=== PATIENT | male | born 1945 | race Caucasian/White ===

== ENCOUNTER 2023-11-04 14:17 | Inpatient (IN) | payer MEDICARE, OTHER ==
[~2023-11-04] VITALS: Ht 170.2 cm; Wt 83.4 kg
[2023-11-04 15:41] LABS: Chloride 105 mmol/L (98-107); Potassium 4.4 mmol/L (3.5-5.1); Sodium 141 mmol/L (136-145)
[2023-11-04 15:42] LABS: Anion Gap 6 (5-15); Carbon Dioxide 30 mmol/L (20-31)
[2023-11-04 15:43] LABS: Calcium 9.3 mg/dL (8.7-10.4)
[2023-11-04 15:45] LABS: Basophils # (auto) 0 10 ^3/uL (0-0.2); Basophils % (auto) 0.4 % (0.0-2.0); Eosinophils # (auto) 0.3 10 ^3/uL (0-0.8); Eosinophils % (auto) 2.8 % (0.0-7.0); Hemoglobin 12.4 g/dL (13.5-17.5); Lymphocytes # (auto) 1.1 10 ^3/uL (0.4-5.4); Mean Corpuscular Hgb Conc. 34.3 g/dL (32.0-36.0); Mean Corpuscular Volume 90.4 fL (80.0-100.0); Monocytes # (auto) 0.7 10 ^3/uL (0-1.3); Monocytes % (auto) 7.8 % (0.0-12.0); Neutrophils # (auto) 7.3 10 ^3/uL (1.6-8.6); Platelet Count (auto) 285 10^3/uL (140-450); Red Blood Cells 3.99 10^6/uL (4.5-5.90); Red Cell Distribution Width 13.3 % (11.8-14.3); White Blood Cell 9.5 10^3/uL (4.4-10.8)
[2023-11-04 15:48] LABS: Blood Urea Nitrogen 19 mg/dL (9-23); Glucose 114 mg/dL (74-106)
[2023-11-04 18:46] VITALS: PULSE 78; RESP 18; O2SAT 96
[2023-11-04 19:05] VITALS: PULSE 77; RESP 18; O2SAT 96
[2023-11-04 21:43] LABS: Alkaline Phosphatase 119 U/L (46-116); Aspartate Aminotransferase 17 U/L (13-40); Bilirubin, Total 0.5 mg/dL (0.2-1.0)
[2023-11-04 21:53] LABS: Alanine Aminotransferase < 9 U/L (7-40)
[2023-11-05] VITALS (16 sets, daily range): BP systolic 118–142; BP diastolic 63–80; PULSE 59–83; RESP 14–85; TEMP 97.5–98.5; O2SAT 92–99
[2023-11-05] MEDS ORDERED: traMADol HCL 50 MG TAB PO PRN
[2023-11-05] MEDS ORDERED: MORPHINE SULFATE INJ 2 MG/ml SYRG IV PRN
[2023-11-05] MEDS ORDERED: ACETAMINOPHEN 500 MG TAB PO PRN
[2023-11-05] MEDS ORDERED: DEXTROSE (50%) 50ML SYRG IV PRN (00:45)
[2023-11-05] MEDS: IPRATROPIUM BROM 0.5 MG/2.5ML INH SOL NEB SCH (00:45)
[2023-11-05] MEDS: LEVALBUTEROL HCL 1.25 MG/3 ML NEB NEB SCH (00:45)
[2023-11-05] MEDS: FUROSEMIDE 40 MG/4 ML VIAL IV ONE (01:19)
[2023-11-05] MEDS: ceFAZolin 1GM/50ML 50 ML IV ONE (02:43)
[2023-11-05] MEDS ORDERED: TIOT17SP IN (03:30)
[2023-11-05] MEDS ORDERED: NYSTOIN4 EX (03:30)
[2023-11-05] MEDS ORDERED: MONT-8 PO (03:30)
[2023-11-05] MEDS ORDERED: OME20GT GT (03:30)
[2023-11-05] MEDS ORDERED: ALBU0.084 NEB (03:30)
[2023-11-05] MEDS ORDERED: FURO40TA4 PO (03:30)
[2023-11-05] MEDS ORDERED: MIRT1TAB40 PO (03:30)
[2023-11-05] MEDS ORDERED: ATOR40TA52 PO (03:30)
[2023-11-05] MEDS ORDERED: DABI75CA5 PO (03:30)
[2023-11-05] MEDS ORDERED: DABI150C5 PO (03:30)
[2023-11-05] MEDS ORDERED: FOSI40TA PO (03:30)
[2023-11-05] MEDS ORDERED: IPRA0.03 (03:30)
[2023-11-05] MEDS ORDERED: GUAI400T13 PO (03:30)
[2023-11-05] MEDS ORDERED: FER325T PO (03:30)
[2023-11-05] MEDS ORDERED: PRE1T PO (03:30)
[2023-11-05] MEDS ORDERED: FLUT250M2 INH (03:30)
[2023-11-05] MEDS ORDERED: GALA16CA PO (03:30)
[2023-11-05] MEDS ORDERED: METO-289 PO (03:30)
[2023-11-05] MEDS ORDERED: AZIT500T66 PO (03:30)
[2023-11-05] MEDS ORDERED: LORA-1121 PO (03:30)
[2023-11-05] MEDS ORDERED: LORA-622 PO (03:30)
[2023-11-05] MEDS: InsuLIN REG 1unit/0.01ml Soln (100units/ml) SC SCH (04:00)
[2023-11-05] MEDS: ATORVASTATIN 20 MG TAB PO ONE (04:40)
[2023-11-05] MEDS: ACCU-CHEK COMFORT CURVE STRIP VI SCH (04:46)
[2023-11-05] MEDS: PANTOPRAZOLE 40 MG TAB PO SCH (05:53)
[2023-11-05 06:01] LABS: Basophils # (auto) 0 10 ^3/uL (0-0.2); Basophils % (auto) 0.4 % (0.0-2.0); Eosinophils # (auto) 0.3 10 ^3/uL (0-0.8); Eosinophils % (auto) 3.8 % (0.0-7.0); Hematocrit 34.1 % (41.0-53.0); Hemoglobin 11.6 g/dL (13.5-17.5); Lymphocytes # (auto) 1.2 10 ^3/uL (0.4-5.4); Mean Corpuscular Hemoglobin 31.2 pg (28.0-32.0); Mean Corpuscular Hgb Conc. 34.1 g/dL (32.0-36.0); Mean Corpuscular Volume 91.3 fL (80.0-100.0); Monocytes # (auto) 0.7 10 ^3/uL (0-1.3); Monocytes % (auto) 8.3 % (0.0-12.0); Neutrophils # (auto) 5.7 10 ^3/uL (1.6-8.6); Neutrophils % (auto) 72.5 % (37.0-80.0); Platelet Count (auto) 235 10^3/uL (140-450); Red Blood Cells 3.73 10^6/uL (4.5-5.90); Red Cell Distribution Width 13.3 % (11.8-14.3); White Blood Cell 7.9 10^3/uL (4.4-10.8)
[2023-11-05 06:24] LABS: Anion Gap 8 (5-15); Calcium 9.3 mg/dL (8.7-10.4); Carbon Dioxide 28 mmol/L (20-31); Chloride 106 mmol/L (98-107); Potassium 4.2 mmol/L (3.5-5.1); Sodium 142 mmol/L (136-145)
[2023-11-05] MEDS: INSULIN LANTUS (GLARGINE) 1 /0.01ml (100units/ml) SC SCH (06:26)
[2023-11-05 06:29] LABS: BUN/Creatinine Ratio 14.9 (10.0-20.0); Blood Urea Nitrogen 17 mg/dL (9-23); Glucose 99 mg/dL (74-106)
[2023-11-05 06:37] LABS: Erythrocyte Sedimentation Rate 67 mm/hr (0-20)
[2023-11-05] MEDS ORDERED: DABIGATRAN 75 MG CAP PO SCH ×2 (10:00→11:22)
[2023-11-05] MEDS: METOPROLOL SUCCINATE XL 50 MG TAB PO SCH (10:16)
[2023-11-05] MEDS: DABIGATRAN 75 MG CAP PO ONE (18:00)
[2023-11-05] MEDS: DABIGATRAN 75 MG CAP PO SCH (22:00)
[2023-11-05] MEDS: ATORVASTATIN 20 MG TAB PO SCH (22:41)
[2023-11-06] VITALS (16 sets, daily range): BP systolic 125–146; BP diastolic 59–81; PULSE 63–85; RESP 12–19; TEMP 98.1–98.5; O2SAT 92–100
[2023-11-07] VITALS (7 sets, daily range): BP systolic 128–138; BP diastolic 56–88; PULSE 63–75; RESP 16–20; TEMP 98.2–98.7; O2SAT 95–97
[2023-11-07] MEDS: FUROSEMIDE 20 MG/2 ML VIAL IV SCH (01:55)
[2023-11-07 08:06] LABS: Complement C3 193 mg/dL (82-167); Rheumatoid Arthritis Factor 11.2 IU/mL (<14.0)
[2023-11-07 09:07] LABS: Anti-Nuclear Antibody Direct Negative (Negative)
[2023-11-07 09:10] LABS: Hepatitis B Core Total AB Negative (Negative)
[2023-11-07 09:27] LABS: Hepatitis A Total Antibody Negative (Negative); Hepatitis B Surface Antibody Negative (Negative); Hepatitis B Surface Antigen Negative (Negative)
[2023-11-07 09:28] LABS: Hepatitis C Antibody Negative (Negative)
[2023-11-07] MEDS: methylPREDNISolone SOD SUCC 40 MG/ML VL IV SCH (09:47)
[2023-11-07] MEDS ORDERED: ALBUTEROL SULF 2.5 MG/0.5ML(0.5%) NEB SOLN NEB SCH (12:00)
[2023-11-07] MEDS ORDERED: IPRATROPIUM BROM 0.5 MG/2.5ML INH SOL NEB SCH (12:00)
[2023-11-08 17:06] LABS: Antimyeloperoxidase (MPO) Ab <0.2 units (0.0-0.9); Antiproteinase 3 (PR-3) Ab <0.2 units (0.0-0.9)
== END 2023-11-07 11:30 | disposition home or self-care (01) | DRG 291 ==
LOC: ER 14:17 → OVERFLOW 23:33 → WEST WING 23:33
PROVIDERS: ADMIT Internal Medicine; ATTEND Internal Medicine
DX: I11.0 Hypertensive heart disease with heart failure (principal); I50.33 Acute on chronic diastolic (congestive) heart failure; D68.69 Other thrombophilia; E11.9 Type 2 diabetes mellitus without complications; I48.91 Unspecified atrial fibrillation; J44.9 Chronic obstructive pulmonary disease, unspecified; I77.6 Arteritis, unspecified; E78.5 Hyperlipidemia, unspecified; K21.9 Gastro-esophageal reflux disease without esophagitis; D89.1 Cryoglobulinemia; L40.9 Psoriasis, unspecified; R91.8 Other nonspecific abnormal finding of lung field; B34.9 Viral infection, unspecified; Z88.8 Allergy status to other drugs, medicaments and biological substances; Z87.891 Personal history of nicotine dependence; Z99.81 Dependence on supplemental oxygen; Z92.21 Personal history of antineoplastic chemotherapy
CPT/HCPCS: 36415; 71045; 80048; 82247; 82306; 82607; 82962; 83036; 83520; 83880; 84075; 84443; 84450; 84460; 84484; 85025; 85652; 86038; 86141; 86160; 86256; 86431; 86704; 86706; 86708; 86803; 87340; 93306; 93925; 93970; 94640; 99291; G0378; J1815

== ENCOUNTER 2024-02-15 06:51 | Inpatient (IN) | payer OTHER, MEDICARE ==
[~2024-02-15] VITALS: Ht 170.2 cm; Wt 88.4 kg
[2024-02-15] VITALS (8 sets, daily range): BP systolic 126–154; BP diastolic 61–85; PULSE 68–110; RESP 18–26; TEMP 98.6–102; O2SAT 93–95
[~2024-02-15 06:51] MED LIST: ALBU0.084 NEB; ATOR40TA52 PO; AZIT500T66 PO; DABI150C5 PO; DABI75CA5 PO; FER325T PO; FLUT250M2 INH; FOSI40TA PO; FURO40TA4 PO; GALA16CA PO; GUAI400T13 PO; IPRA0.03; LORA-1121 PO; LORA-622 PO; METO-289 PO; MIRT1TAB40 PO; MONT-8 PO; NYSTOIN4 EX; OME20GT GT; PRE1T PO; TIOT17SP IN
--- NOTE | 2024-02-15 07:03 | ECG ---
[facility] Test Date: 2024-02-15 Test Time: 06:58:11 Pat Name: SOPHIA BECK Department: ED Room: 0275T Gender: M Hvac Manager: NANCY : 1945 Requested By: FABIEN ALEMAN Order Number: [id number] Reading MD: Louie Vines Measurements Intervals [place] Rate: 117 P: 14 NV: 179 QRS: 246 QRSD: 102 T: 53 QT: 304 QTc: 424 Interpretive Statements Sinus tachycardia LAD, consider left anterior fascicular block RSR' in V1 or V2, right VCD or RVH Electronically Signed On 02-16-2024 10:22:29 PST by Louie Vines Please click the below link to view image of tracing.
--- NOTE | 2024-02-15 07:34 | ED.PDOC ---
SOB-HPI HPI Comments 78Y M with PMHx DM, HTN, COPD, and asthma presents to ED via EMS for chief complaint SOB x2days with productive cough and fever [id number]. Upon EMS arrival on scene, pt was hypoxic with SpO2 88% on 2L/min O2. Pt also did a breathing treatment while at home and did not feel relief. Upon ED arrival, pt is febrile with temp 100.7F, tachycardic with HR 116, and tachypneic with RR 28. Chief Complaint: Shortness of Breath Time Seen by MD: 06:55 Primary Care Provider: LEON Reviewed notes: Nurses Notes, Grain Elevator Superintendent Notes, Medications, Allergies Information Source: Patient, Emergency Med Personnel Mode of Arrival: EMS Brought in by: EMS Severity: Moderate Timing: Days Duration: Since onset Context: At Rest PE Risk Factors: None History of: Asthma, COPD, Recent URI Prehospital treatment: Breathing Tx Modifying Factors: Nothing Associated Signs and Symptoms: Fever, Cough If cough with SOB: Productive Past Medical History PAST MEDICAL HISTORY: AFIB, Asthma, COPD, DM, HTN Surgical History: Denies all surgeries Family History Family History: Reviewed,noncontributory to illness, Unknown Social History Smoker: Non-Smoker Alcohol: Denies ETOH Use Drugs: Denies Drug Use Lives In: Home Constitutional: reports: fever; denies: chills, diaphoresis, fatigue, malaise, sweats, weakness, others EENTM: denies: blurred vision, double vision, ear bleeding, ear discharge, ear drainage, ear pain, ear ringing, eye pain, eye redness, hearing loss, mouth pain, mouth swelling, nasal discharge, nose bleeding, nose congestion, nose pain, photophobia, tearing, throat pain, throat swelling, voice changes, others Respiratory: reports: cough, shortness of breath; denies: hemoptysis, orthopnea, SOB at rest, SOB with excertion, stridor, wheezing, others Cardiovascular: denies: chest pain, dizzy spells, diaphoresis, Dyspnea on exertion, edema, irregular heart beat, left arm pain, lightheadedness, palpitations, PND, syncope, others Gastrointestinal: denies: abdomen distended, abdominal pain, blood streaked bowels, constipated, diarrhea, dysphagia, difficulty swallowing, hematemesis, melena, nausea, poor appetite, poor fluid intake, rectal bleeding, rectal pain, vomiting, others Genitourinary: denies: burning, dysuria, flank pain, frequency, hematuria, incontinence, penile discharge, penile sore, pain, testicle pain, testicle swelling, urgency, others Neurological: denies: dizziness, fainting, headache, left sided numbness, left sided weakness, numbness, paresthesia, pre-existing deficit, right sided numbness, right sided weakness, seizure, speech problems, tingling, tremors, weakness, others Musculoskeletal: denies: back pain, gout, joint pain, joint swelling, muscle pain, muscle stiffness, neck pain, others Integumetry: denies: bruises, change in color, change in hair/nails, dryness, laceration, lesions, lumps, rash, wounds, others Allergic/Immunocompromised: denies: Difficulty Healing, Frequent Infections, Hives, Itching, others Hematologic/Lymphatic: denies: anemia, blood clots, easy bleeding, easy bruising, swollen glands, others Endocrine: denies: excessive hunger, excessive sweating, excessive thirst, excessive urination, flushing, intolerance to cold, intolerance to heat, unexplained weight gain, unexplained weight loss, others Psychiatric: denies: anxiety, bipolar disorder, depression, hopeless, panic disorder, schizophrenia, sleepless, suicidal, others All Other Systems: Reviewed and Negative Physical Exam General Appearance: No Apparent Distress, Normal HEENT: Normal ENT Inspection, Pharynx Normal, TMs Normal Neck: Full Range of Motion, Non-Tender, Normal, Normal Inspection Respiratory: Accessory Muscle Use, Chest Non-Tender, Rales (bilateral) Cardiovascular: No Edema, No JVD, No Murmur, No Gallop, Normal Peripheral Pulses, Tachycardia Breast Exam: Deferred Gastrointestinal: No Organomegaly, Non Tender, No Pulsatile Mass, Normal Bowel Sounds, Soft Genitalia: Deferred Pelvic: Deferred Rectal: Deferred Extremities: No calf tenderness, Normal capillary refill, Normal inspection, Normal range of motion, Non-tender, No pedal edema Musculoskeletal : Apperance: Normal Neurologic: Alert, rag cutting machine feeder II-XII nml as Tested, No Motor Deficits, Normal Affect, Normal Mood, No Sensory Deficits Cerebellar Function: Normal Reflexes: Normal Skin: Dry, Normal Color, Warm Lymphatic: No Adenopathy Was a procedure done? Was a procedure done?: No Differential Dx Differential Diagnosis: Anxiety, Asthma, Bronchitis, Cardiogenic Shock, CHF, COPD, Myocardial infarction, Panic Attack, Pneumonia, Pneumothorax, Pulmonary Embolism, Respiratory Distress X-Ray, Labs, Meds, VS Vital Signs Date Time Temp Pulse Resp B/P (MAP) Pulse Ox O2 Delivery O2 Flow Rate FiO2 02/15/24 09:15 81 26 94 Nasal Cannula* 3 32 02/15/24 08:58 99.8 105 26 123/62 (82) 94 99.8 02/15/24 07:05 100.7 116 28 124/73 (90) 98 02/15/24 06:58 117 Lab Test 02/15/24 09:39 02/15/24 08:00 02/15/24 07:37 Range/Units Troponin I High Sensitivity Pending 16 </=54 ng/L Influenza Type A Antigen Negative Negative Influenza Type B Antigen Negative Negative SARS-CoV-2 Antigen (Rapid) Negative NEGATIVE White Blood Count 23.3 H 4.4-10.8 10^3/uL Red Blood Count 4.48 L 4.5-5.90 10^6/uL Hemoglobin 13.2 L 13.5-17.5 g/dL Hematocrit 40.7 L 41.0-53.0 % Mean Corpuscular Volume 90.7 80.0-100.0 fL Mean Corpuscular Hemoglobin 29.5 28.0-32.0 pg Mean Corpuscular Hemoglobin Concent 32.6 32.0-36.0 g/dL Red Cell Distribution Width 15.1 H 11.8-14.3 % Platelet Count 253 140-450 10^3/uL Mean Platelet Volume 9.1 6.9-10.8 fL Neutrophils (%) (Auto) 90.3 H 37.0-80.0 % Lymphocytes (%) (Auto) 2.8 L 10.0-50.0 % Monocytes (%) (Auto) 6.7 0.0-12.0 % Eosinophils (%) (Auto) 0.1 0.0-7.0 % Basophils (%) (Auto) 0.1 0.0-2.0 % Neutrophils # (Auto) 21.0 H 1.6-8.6 10 ^3/uL Lymphocytes # (Auto) 0.7 0.4-5.4 10 ^3/uL Monocytes # (Auto) 1.6 H 0-1.3 10 ^3/uL Eosinophils # (Auto) 0 0-0.8 10 ^3/uL Basophils # (Auto) 0 0-0.2 10 ^3/uL Nucleated Red Blood Cells 0.0 % Sodium Level 139 136-145 mmol/L Potassium Level 4.5 3.5-5.1 mmol/L Chloride Level 105 98-107 mmol/L Carbon Dioxide Level 27 20-31 mmol/L Anion Gap 7 5-15 Blood Urea Nitrogen 28 H 9-23 mg/dL Creatinine 1.48 H 0.700-1.30 mg/dL Glomerular Filtration Rate Calc 48 >90 mL/min BUN/Creatinine Ratio 18.9 10.0-20.0 Serum Glucose 146 H 74-106 mg/dL Calcium Level 9.4 8.7-10.4 mg/dL B-Type Natriuretic Peptide 97.79 0-100 pg/mL [place] [id number] Ph: [phone] DIAGNOSTIC IMAGING Diagnostic Imaging Report : [id number] Signed PATIENT: SOPHIA BECK ACCT: [id number] UNIT: [id number] : 1945 LOC: ER ROOM / BED: / AGE / SEX: 78 / M ADM STATUS: REG ER SERVICE 2 ORDERING PHYSICIAN: FABIEN ALEMAN MD PROCEDURE(s): CXRP - CHEST PORTABLE REASON: sob ORDER NUMBER(s): [id number], ACCESSION NUMBER(s): [id number] CHEST RADIOGRAPH Indication: sob Technique: Single frontal view of the chest was obtained COMPARISON: XY CHEST PORTABLE on DOS: 11/04/23 FINDINGS: Lines and Tubes: None Lungs: Multifocal airspace disease with more focal consolidation in the right lower lobe. Pleura: No effusion. No pneumothorax. Cardiomediastinal contours: Unremarkable Bones: Unremarkable IMPRESSION: Multifocal airspace disease with more focal consolidation in the right lower lobe. ATED BY: REGINO GRULLON MD DICTATED DATE/TIME: 02/15/24810 SIGNED BY: REGINO GRULLON MD SIGNED DATE/TIME: 02/15/24810 CC: Time of 1ST Reevaluation: 07:25 Reevaluation 1ST: Unchanged Time of 2ND Reevaluation: 10:11 Reevaluation 2ND: Unchanged Patient Education/Counseling: Diagnosis, Treatment, Prognosis, Need For Follow Up Family Education/Counseling: No Family Present Additional Information I reviewed the following notes from patient's past medical encounters: [facility] discharge 11/07/2023 The following tests were ordered, and results were reviewed by me: EKG, CBC, BMP, BNP, Troponin x3, COVID19 Ag, Rapid influenza A&B, CXR Additional Information was gathered from interviewing the following independent historians: EMS. I reviewed and agreed with the following test results read by other providers: CXR I discussed treatment and results with medical personnel. pt has pneumonia with copd exacerbation and acute respiratory failure. he meet sepsis criteria, so sepsis orders will be entered. pt will be admitted for the above conditions Sepsis Sepsis Reasesment Focused Exam Sepsis focused exam: time: (1100- pt is stable) Departure 1 Departure Time of Disposition: 10:17 Impression: Primary Impression: Pneumonia Qualified Codes: J18.9 - Pneumonia, unspecified organism Additional Impressions: COPD exacerbation Sepsis Qualified Codes: A41.9 - Sepsis, unspecified organism; R65.20 - Severe sepsis without septic shock; J96.01 - Acute respiratory failure with hypoxia Disposition: ADMITTED INPATIENT Admit to: [facility] Condition: Serious Discharged With: Self Critical Care Note Critical Care Time?: Yes (55 min-critical care time only) Critical care comment: Due to concerns for patients condition deteriorating, the care required my highest level of attention and readiness to intervene. I assessed the patient, reviewed the medical records, ordered the appropriate tests and treatments, then reassessed for results and responsiveness. I communicated with medical personnel and consultants and formulated a plan of care. Total critical care time excludes any procedures Stability Stability form required: No Heart Score Heart Score: Heart Score Response (Comments) Value History N/A 0 EKG N/A 0 Age N/A 0 Risk Factors N/A 0 Troponin N/A 0 Total 0 I personally scribed for FABIEN [facility]LEMAN [facility] on 02/15/24 at 07:34. Electronically submitted by [facility] ([facility] I personally scribed for FABIEN [facility]LEMAN [facility] ([facility] on 02/15/24 at 08:32. Electronically submitted by Alma Reyes ([email or web address]). FABIEN ALEMAN MD Feb 15, 2024 07:34
--- NOTE | 2024-02-15 08:13 | DVH ---
CHEST RADIOGRAPH Indication: sob Technique: Single frontal view of the chest was obtained COMPARISON: XY CHEST PORTABLE on DOS: 11/04/23 FINDINGS: Lines and Tubes: None Lungs: Multifocal airspace disease with more focal consolidation in the right lower lobe. Pleura: No effusion. No pneumothorax. Cardiomediastinal contours: Unremarkable Bones: Unremarkable IMPRESSION: Multifocal airspace disease with more focal consolidation in the right lower lobe.
[2024-02-15 08:19] LABS: Chloride 105 mmol/L (98-107); Potassium 4.5 mmol/L (3.5-5.1); Sodium 139 mmol/L (136-145)
[2024-02-15 08:20] LABS: Anion Gap 7 (5-15); Calcium 9.4 mg/dL (8.7-10.4); Carbon Dioxide 27 mmol/L (20-31)
[2024-02-15 08:25] LABS: BUN/Creatinine Ratio 18.9 (10.0-20.0); Blood Urea Nitrogen 28 mg/dL (9-23); Glucose 146 mg/dL (74-106)
[2024-02-15 08:48] LABS: COVID19 ANTIGEN SOFIA FIA NEGATIVE (NEGATIVE); Rapid Influenza A Negative (Negative); Rapid Influenza B Negative (Negative)
[2024-02-15 09:02] LABS: Basophils # (auto) 0 10 ^3/uL (0-0.2); Basophils % (auto) 0.1 % (0.0-2.0); Eosinophils # (auto) 0 10 ^3/uL (0-0.8); Eosinophils % (auto) 0.1 % (0.0-7.0); Hematocrit 40.7 % (41.0-53.0); Hemoglobin 13.2 g/dL (13.5-17.5); Lymphocytes # (auto) 0.7 10 ^3/uL (0.4-5.4); Lymphocytes % (auto) 2.8 % (10.0-50.0); Mean Corpuscular Hemoglobin 29.5 pg (28.0-32.0); Mean Corpuscular Hgb Conc. 32.6 g/dL (32.0-36.0); Mean Corpuscular Volume 90.7 fL (80.0-100.0); Monocytes # (auto) 1.6 10 ^3/uL (0-1.3); Monocytes % (auto) 6.7 % (0.0-12.0); Neutrophils % (auto) 90.3 % (37.0-80.0); Platelet Count (auto) 253 10^3/uL (140-450); Red Blood Cells 4.48 10^6/uL (4.5-5.90); Red Cell Distribution Width 15.1 % (11.8-14.3); White Blood Cell 23.3 10^3/uL (4.4-10.8)
[2024-02-15] MEDS ORDERED: levoFLOXacin 500MG 100 ML IV SCH (10:15)
[2024-02-15] MEDS: SODIUM CHLORIDE 0.9% 2,050 ML IV ONE (11:07)
[2024-02-15] MEDS ORDERED: levoFLOXacin 500MG 100 ML IV ONE (11:15)
[2024-02-15] MEDS ORDERED: VANCOMYCIN PER PHARMACY 0 MG IV SCH (11:45)
[2024-02-15] MEDS: cefTRIAXone 1GM/50ML D5W 50 ML IV ONE ×2 (12:01→17:36)
[2024-02-15] MEDS: AZITHROMYCIN 500MG/ 250ML 250 ML IV ONE (12:03)
[2024-02-15] MEDS: VANCOMYCIN 1GM/250ML KIT 250 ML IV ONE (13:42)
[2024-02-15] MEDS ORDERED: ONDANSETRON HCL 4 MG/2 ML VIAL IV PRN (14:45)
[2024-02-15] MEDS ORDERED: NITROGLYCERIN 0.4 MG SL TAB SL PRN (14:45)
[2024-02-15] MEDS ORDERED: DEXTROSE (50%) 50ML SYRG IV PRN (14:45)
[2024-02-15] MEDS ORDERED: MORPHINE SULFATE INJ 2 MG/ml SYRG IV PRN (14:45)
--- NOTE | 2024-02-15 14:54 | DVHHP2 ---
History of Present Illness Reason for Visit: Shortness of breath History of Present Illness Jonatan Tobar JR is a 78-year-old male with past medical history of hypertension, hyperlipidemia, diabetes, COPD, asthma, AFib, CHF, vasculitis autoimmune, prostate surgery, and left toe correction who presents to the ED for shortness of breath x1 week. Per she was at home with her he was walking in the bathroom and became short of breath, in which then she called EMS to take him to the ED for evaluation. Patient reports that he is hard of hearing and uses hearing aids. Patient also reports that with minimal exertion he gets short of breath. Patient also reports that he is compliant with his medications. Patient denies chest pain, recent sick contacts, abdominal pain, nausea, vomiting, diarrhea, weakness, lightheadedness, dizziness, and headaches. Cardiovascular: AFIB, CHF, HTN, hyperipidemia Pulmonary: Asthma, COPD Endocrine: Diabetes Past Medical History Vasculitis Past Surgical History: Other (Prostate surgery And left toe correction) Family History: None Smoke: Quit ALCOHOL: none Drugs: None Lives: with Family Domestic Violence: Neg Review of Systems Constitutional: No: Fever, Chills, Sweats, Weakness, Malaise, Other Eyes: No: Pain, Vision change, Conjunctivae inflammation, Eyelid inflammation, Other, Redness ENT: No: Ear pain, Ear discharge, Nose pain, Nose discharge, Nose congestion, Mouth pain, Mouth swelling, Throat pain, Throat swelling, Other Respiratory: Shortness of breath; No: Cough, Dry, SOB with excertion, Wheezing, Hemoptysis, Pleuritic Pain, Sputum, Wheezing, Other Cardiovascular: No: Chest Pain, Palpitations, Orthopnea, Paroxysmal Noc. Dyspnea, Edema, Lt Headedness, Other Gastrointestinal: No: Nausea, Vomiting, Abdominal Pain, Diarrhea, Constipation, Melena, Hematochezia, Other Genitourinary: No Dysuria, No Frequency, No Incontinence, No Hematuria, No Retention, No Other Musculoskeletal: No: other, neck pain, shoulder pain, arm pain, back pain, hand pain, leg pain, foot pain Skin: No: Rash, Lesions, Jaundice, Bruising, Other Neurological: No: Weakness, Numbness, Incoordination, Change in speech, Confusion, Seizures, Other Allergies: Coded Allergies: Alfuzosin (Verified Allergy, Severe, 11/04/23) Terazosin (Verified Allergy, Severe, 11/04/23) Medications Current Medications Medications Dose Ordered Sig/Chiquita Route Start Time Stop Time Status Last Admin Dose Admin Vancomycin HCl 0 ml @ 0 mls/hr UD IV 02/15/24 11:45 Vancomycin HCl 250 ml @ 250 mls/hr DAILY@1000 IV 02/16/24 10:00 Azithromycin 250 ml @ 125 mls/hr DAILY IV 02/16/24 10:00 UNV Diagnostic Test (Pha) 1 strip ACHS 02/15/24 17:00 UNV Insulin Human Regular ACHS SC 02/15/24 17:00 UNV Dextrose 50 ml UD PRN IV 02/15/24 14:45 UNV Sodium Chloride 1,000 ml @ 70 mls/hr [id number] IV 02/15/24 14:45 UNV Ondansetron HCl 4 mg Q4HP PRN IV 02/15/24 14:45 UNV Nitroglycerin 0.4 mg Q5MINP PRN SL 02/15/24 14:45 UNV Morphine Sulfate 2 mg Q30M PRN IV 02/15/24 14:45 UNV Exam Vital Signs Vital Signs Date Time Temp Pulse Resp B/P (MAP) Pulse Ox O2 Delivery O2 Flow Rate FiO2 02/15/24 13:10 21 95 Nasal Cannula* 2 28 02/15/24 13:00 98.6 93 154/85 (108) 98.6 General Appearance: Alert, Oriented X3, Cooperative, mild distress HEENT: Atraumatic, PERRLA, EOMI, Mucous membr. moist/pink Respiratory: Normal air movement Cardiovascular: Normal S1, Normal S2, No murmurs Abdominal: Normal bowel sounds, Soft, No tenderness, No hepatospenomegaly, No masses Extremities: No clubbing, No cyanosis, No edema, Normal pulses, No tenderness/swelling Skin: No significant lesion Neuro: Normal gait, Normal speech, Strength at 5/5 X4 ext, Normal tone, Sensation intact Psych/Mental Status: Mental status NL, Mood NL Labs/Xrays Labs Test 02/15/24 13:58 02/15/24 09:39 02/15/24 08:00 02/15/24 07:37 Range/Units Lactic Acid Level 1.4 0.4-2.0 mmol/L Troponin I High Sensitivity 17 </=54 ng/L Influenza Type A Antigen Negative Negative Influenza Type B Antigen Negative Negative SARS-CoV-2 Antigen (Rapid) Negative NEGATIVE White Blood Count 23.3 H 4.4-10.8 10^3/uL Red Blood Count 4.48 L 4.5-5.90 10^6/uL Hemoglobin 13.2 L 13.5-17.5 g/dL Hematocrit 40.7 L 41.0-53.0 % Mean Corpuscular Volume 90.7 80.0-100.0 fL Mean Corpuscular Hemoglobin 29.5 28.0-32.0 pg Mean Corpuscular Hemoglobin Concent 32.6 32.0-36.0 g/dL Red Cell Distribution Width 15.1 H 11.8-14.3 % Platelet Count 253 140-450 10^3/uL Mean Platelet Volume 9.1 6.9-10.8 fL Neutrophils (%) (Auto) 90.3 H 37.0-80.0 % Lymphocytes (%) (Auto) 2.8 L 10.0-50.0 % Monocytes (%) (Auto) 6.7 0.0-12.0 % Eosinophils (%) (Auto) 0.1 0.0-7.0 % Basophils (%) (Auto) 0.1 0.0-2.0 % Neutrophils # (Auto) 21.0 H 1.6-8.6 10 ^3/uL Lymphocytes # (Auto) 0.7 0.4-5.4 10 ^3/uL Monocytes # (Auto) 1.6 H 0-1.3 10 ^3/uL Eosinophils # (Auto) 0 0-0.8 10 ^3/uL Basophils # (Auto) 0 0-0.2 10 ^3/uL Nucleated Red Blood Cells 0.0 % Sodium Level 139 136-145 mmol/L Potassium Level 4.5 3.5-5.1 mmol/L Chloride Level 105 98-107 mmol/L Carbon Dioxide Level 27 20-31 mmol/L Anion Gap 7 5-15 Blood Urea Nitrogen 28 H 9-23 mg/dL Creatinine 1.48 H 0.700-1.30 mg/dL Glomerular Filtration Rate Calc 48 >90 mL/min BUN/Creatinine Ratio 18.9 10.0-20.0 Serum Glucose 146 H 74-106 mg/dL Calcium Level 9.4 8.7-10.4 mg/dL B-Type Natriuretic Peptide 97.79 0-100 pg/mL CHEST RADIOGRAPH Indication: sob Technique: Single frontal view of the chest was obtained COMPARISON: XY CHEST PORTABLE on DOS: 11/04/23 FINDINGS: Lines and Tubes: None Lungs: Multifocal airspace disease with more focal consolidation in the right lower lobe. Pleura: No effusion. No pneumothorax. Cardiomediastinal contours: Unremarkable Bones: Unremarkable IMPRESSION: Multifocal airspace disease with more focal consolidation in the right lower lobe. Assessment/Plan Assessment/Plan Assessment/Plan: Acute on chronic COPD exacerbation Leukocytosis likely secondary to sepsis PNA EMERSON Elevated creatinine IV vancomycin given in ED IV azithromycin given in ED IV ceftriaxone given ED IV Levaquin given in ED NS given in ED Creatinine IV Lasix Blood cultures NS Troponin negative x2 COVID test negative Flu test negative Chest x-ray BNP EKG noted Echo Chest x-ray in a.m. Labs A.m. labs Respiratory treatments Oxygen dependent patient uses 2 L nasal cannula of oxygen at home IV antibiotics-ceftriaxone and azithromycin Diabetes uncontrolled Hemoglobin A1c ISS and Accu-Cheks History of vasculitis-autoimmune Monitor Chronic hypertension CHF continue home meds Chronic hyperlipidemia Continue home meds Chronic AFib Continue home medication FEN/PPX diet Ivf DVT ppx-continue home medication, Pradaxa and patient is ambulating PUD ppx - famotidine given with steroids Discussed plan of care with patient and nurse Home medications reconciled Admit to telemetry Plan discussed with: Patient My Orders Orders - RASHIDA SMITH PUBLICATION MANAGER Procedure Category Date Status Time Ceftriaxone 1gm/50ml PHA 02/15/24 Logged D5w (Rocephin) 14:45 Azithromycin 500mg/ PHA 02/16/24 Logged 250ml (Zithromax 50 10:00 Hemoglobin A1c LAB 02/15/24 Logged 14:32 Glucose Blood PHA 02/15/24 Logged (Accu-Chek Comfort 17:00 Insulin R (Human) PHA 02/15/24 Logged (Insulin R) 17:00 Dextrose 50% Syringe PHA 02/15/24 Logged 14:45 Admit ADMIT 02/15/24 Transmitted 14:32 Allergies JASPAL 02/15/24 In Process 14:32 Code Status CODE 02/15/24 Transmitted 14:32 Sodium Chloride 0.9% PHA 02/15/24 Logged 14:45 Ondansetron Hcl PHA 02/15/24 Logged (Zofran) 14:45 Complete Blood Count LAB 02/16/24 Verified 04:00 Comprehensive LAB 02/16/24 Verified Metabolic Panel 04:00 Cardiac DIET 02/15/24 Transmitted Diet-2gna,Lofat,Lochol Dinner Echo 2d Mode Cardiac US 02/15/24 Logged DOP 14:32 Nitroglycerin PHA 02/15/24 Logged Sublingual (Ntrostat 14:45 Morphine Sulfate PHA 02/15/24 Logged Injection 14:45 Stat Ekg For Chest JASPAL 02/15/24 In Process Pain 14:32 Notify Md Of Changes JASPAL 02/15/24 In Process From Base 14:32 Social Work Faculty Member For JASPAL 02/15/24 In Process 24 Hours 14:32 Emergency Dysrhythmia [facility] 02/15/24 In Process Protocol 14:32 Rhythm Strips Once JASPAL 02/15/24 In Process Every Shift 14:32 Oxygen By Nasal RT 02/15/24 Transmitted Cannula 14:32 Chest Xray 1 View XY 02/15/24 Logged 14:32 Methylprednisolone PHA 02/15/24 Logged Sod Succ (Solu Medrol 22:00 Famotidine Injection PHA 02/16/24 Logged (Pepcid Injection) 10:00 Albuterol Medneb PHA 02/15/24 Logged (Ventolin Medneb) 18:00 Albuterol Medneb PHA 02/15/24 Logged (Ventolin Medneb) 14:45 Ipratropium Medneb PHA 02/15/24 Logged (Atrovent Medneb) 18:00 Ipratropium Medneb PHA 02/15/24 Logged (Atrovent Medneb) 14:45 Chest Xray 1 View XY 02/16/24 Logged 04:00 Date of Service: Feb 15, 2024 Billing Provider: RASHIDA SMITH Common Visit Codes: [id number] INP/OBS CARE (HIGH) RASHIDA SMITH Feb 15, 2024 14:54
[2024-02-15] MEDS: ALBUTEROL SULF 2.5 MG/0.5ML(0.5%) NEB SOLN NEB PRN (16:15)
[2024-02-15] MEDS: IPRATROPIUM BROM 0.5 MG/2.5ML INH SOL NEB PRN (16:15)
[2024-02-15] MEDS: ALBUTEROL SULF 2.5 MG/0.5ML(0.5%) NEB SOLN NEB ONE (16:26)
[2024-02-15] MEDS: SODIUM CHLORIDE 0.9% 1,000 ML IV SCH (17:36)
[2024-02-15] MEDS: InsuLIN REG 1unit/0.01ml Soln (100units/ml) SC SCH (18:37)
[2024-02-15] MEDS: ACCU-CHEK COMFORT CURVE STRIP VI SCH (18:37)
[2024-02-15] MEDS: ALBUTEROL SULF 2.5 MG/0.5ML(0.5%) NEB SOLN NEB SCH (19:04)
[2024-02-15] MEDS: IPRATROPIUM BROM 0.5 MG/2.5ML INH SOL NEB SCH (19:05)
[2024-02-15] MEDS: methylPREDNISolone SOD SUCC 40 MG/ML VL IV SCH (23:35)
[2024-02-15] MEDS: ACETAMINOPHEN 325 MG TAB PO PRN (23:45)
[2024-02-16] VITALS (17 sets, daily range): BP systolic 108–143; BP diastolic 67–80; PULSE 77–125; RESP 14–24; TEMP 97.2–100.4; O2SAT 95–99
--- NOTE | 2024-02-16 06:30 | DVH ---
CHEST RADIOGRAPH Indication: pna Technique: Single frontal view of the chest was obtained Comparison: XY CHEST PORTABLE on DOS: 02/15/24, XY CHEST PORTABLE on DOS: 11/04/23 FINDINGS: Lines and Tubes: None Lungs: Bilateral opacities are unchanged. Pleura: No effusion. No pneumothorax. Cardiomediastinal contours: Unremarkable Bones: No acute osseous abnormality. IMPRESSION: 1. No significant change in bilateral opacities which may represent pneumonia. Follow-up to ensure co mplete resolution recommended.
[2024-02-16 07:37] LABS: Basophils # (auto) 0 10 ^3/uL (0-0.2); Basophils % (auto) 0.2 % (0.0-2.0); Eosinophils # (auto) 0 10 ^3/uL (0-0.8); Hematocrit 38.6 % (41.0-53.0); Hemoglobin 12.5 g/dL (13.5-17.5); Lymphocytes # (auto) 0.3 10 ^3/uL (0.4-5.4); Lymphocytes % (auto) 1.8 % (10.0-50.0); Mean Corpuscular Hemoglobin 29.8 pg (28.0-32.0); Mean Corpuscular Hgb Conc. 32.4 g/dL (32.0-36.0); Mean Corpuscular Volume 92.2 fL (80.0-100.0); Monocytes # (auto) 0.5 10 ^3/uL (0-1.3); Monocytes % (auto) 2.4 % (0.0-12.0); Neutrophils # (auto) 17.8 10 ^3/uL (1.6-8.6); Neutrophils % (auto) 95.6 % (37.0-80.0); Platelet Count (auto) 219 10^3/uL (140-450); Red Blood Cells 4.19 10^6/uL (4.5-5.90); Red Cell Distribution Width 15.3 % (11.8-14.3); White Blood Cell 18.7 10^3/uL (4.4-10.8)
[2024-02-16 07:53] LABS: Alanine Aminotransferase 21 U/L (7-40); Albumin 3.6 g/dL (3.2-4.8); Anion Gap 6 (5-15); Aspartate Aminotransferase 34 U/L (13-40); BUN/Creatinine Ratio 22.4 (10.0-20.0); Bilirubin, Total 0.4 mg/dL (0.2-1.0); Calcium 9.3 mg/dL (8.7-10.4); Carbon Dioxide 25 mmol/L (20-31); Total Protein 6.2 g/dL (5.7-8.2)
[2024-02-16 07:56] LABS: Chloride 106 mmol/L (98-107); Glucose 159 mg/dL (74-106); Potassium 4.5 mmol/L (3.5-5.1); Sodium 137 mmol/L (136-145)
[2024-02-16 07:57] LABS: Alkaline Phosphatase 189 U/L (46-116); Blood Urea Nitrogen 28 mg/dL (9-23)
[2024-02-16] MEDS: FAMOTIDINE (10MG/ML) 2ML VL IV SCH (09:20)
[2024-02-16] MEDS: VANCOMYCIN 1GM/250ML KIT 250 ML IV SCH (09:20)
--- NOTE | 2024-02-16 11:26 | DVHPN2 ---
Subjective patient states he is feeling better. Still not at baseline. use 2L oxygen at home. was a 42 year smoker. Reviewed: H&P Changes from previous H/P or p: No Changes General: No Chills, No Night Sweats, No Fatigue Neurological: Weakness Eyes: No Pain, No Vision change, No Conjunctivae inflammation, No Eyelid inflammation, No Other, No Redness ENT: No Ear pain, No Ear discharge, No Nose pain, No Nose discharge, No Nose congestion, No Mouth pain, No Mouth swelling, No Throat pain, No Throat swelling, No Other Cardiovascular: No Chest Pain, No Palpitations, No Orthopnea, No Paroxysmal Noc. Dyspnea, No Edema, No Lt Headedness, No Other Respiratory: Cough; No Dry; Shortness of breath; No SOB with excertion; W heezing; No Hemoptysis, No Pleuritic Pain, No Sputum, No Other Gastrointestinal: No Nausea, No Vomiting, No Abdominal Pain, No Diarrhea, No Constipation, No Melena, No Hematochezia, No Other Genitourinary: No Dysuria, No Frequency, No Incontinence, No Hematuria, No Retention, No Other Musculoskeletal: No other, No neck pain, No shoulder pain, No arm pain, No back pain, No hand pain, No leg pain, No foot pain Skin: No Rash, No Lesions, No Jaundice, No Bruising, No Other Objective Vitals Vital Signs Date Time Temp Pulse Resp B/P (MAP) Pulse Ox O2 Delivery O2 Flow Rate FiO2 02/16/24 10:49 96 Nasal Cannula* 5 40 02/16/24 10:49 89 18 02/16/24 09:00 98.3 122/71 (88) 98.3 Intake/Output Intake and Output 02/16/24 07:00 Intake Total 0 ml Balance 0 ml Intake Oral 0 ml # Voids 1 General Appearance: Alert, Oriented X3, Cooperative Lungs: Other (poos abelino movemebt. Wheezing and rhonci present throughout all lung smith. ) Cardiovascular: Regular rate, Normal S1, Normal S2 Abdomen: Normal bowel sounds, Soft Musculoskeletal: Normal motor function Extremities: No tenderness/swelling Medications Current Medications Medications Dose Ordered Sig/Chiquita Route Start Time Stop Time Status Last Admin Dose Admin Vancomycin HCl 0 ml @ 0 mls/hr UD IV 02/15/24 11:45 Vancomycin HCl 250 ml @ 250 mls/hr DAILY@1000 IV 02/16/24 10:00 02/16/24 09:20 250 MLS/HR Azithromycin 250 ml @ 125 mls/hr DAILY IV 02/16/24 10:00 Diagnostic Test (Pha) 1 strip ACHS 02/15/24 17:00 02/16/24 11:19 1 STRIP Insulin Human Regular ACHS SC 02/15/24 17:00 02/16/24 05:59 3 UNITS Dextrose 50 ml UD PRN IV 02/15/24 14:45 Sodium Chloride 1,000 ml @ 70 mls/hr [id number] IV 02/15/24 14:45 02/15/24 17:36 70 MLS/HR Ondansetron HCl 4 mg Q4HP PRN IV 02/15/24 14:45 Nitroglycerin 0.4 mg Q5MINP PRN SL 02/15/24 14:45 Morphine Sulfate 2 mg Q30M PRN IV 02/15/24 14:45 Methylprednisolone Sodium Succinate 40 mg Q8HR IV 02/15/24 22:00 02/16/24 05:38 40 MG Famotidine 20 mg DAILY IV 02/16/24 10:00 02/16/24 09:20 20 MG Albuterol 2.5 mg Q6HWA NEB 02/15/24 18:00 02/16/24 07:41 2.5 MG Albuterol 2.5 mg Q4HPRN PRN NEB 02/15/24 14:45 02/16/24 10:49 2.5 MG Ipratropium [place] 0.5 mg Q6HWA NEB 02/15/24 18:00 02/16/24 07:42 0.5 MG Ipratropium [place] 0.5 mg Q4HPRN PRN NEB 02/15/24 14:45 Hold Ipratropium [place] 0.5 mg Q2HPRN PRN NEB 02/15/24 16:15 Acetaminophen 650 mg Q6HP PRN PO 02/15/24 23:00 02/15/24 23:45 650 MG Laboratory Results Laboratory Tests 02/16/24 05:45 Chemistry Test 02/16/24 05:45 Albumin 3.6 g/dL (3.2-4.8) Calcium Level 9.3 mg/dL (8.7-10.4) Total Protein 6.2 g/dL (5.7-8.2) LFT Test 02/16/24 05:45 Alanine Aminotransferase (ALT) 21 U/L (7-40) Alkaline Phosphatase 189 U/L (46-116) H Aspartate Amino Transferase (AST) 34 U/L (13-40) Total Bilirubin 0.4 mg/dL (0.2-1.0) Microbiology Microbiology Date/Time Source Procedure Growth Status 02/15/24 10:45 Blood Blood Culture - Preliminary NO GROWTH AFTER 24 HOURS OF INCUBATION. Resulted Assessment/Plan Assessment/Plan Acute on chronic COPD exacerbation Community Acquired PNA - Present on admission. ongoing. Leukocytosis likely secondary to sepsis from PNA EMERSON - baseline noted 1.17. elevated on this admission as high as 1.48. 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 - No IVF DVT ppx-continue home medication, Pradaxa and patient is ambulating PUD ppx - famotidine given with steroids Plan discussed with: Patient, Spouse My Orders Orders - ROME KC MD Procedure Category Date Status Time Ceftriaxone Ivpb PHA 02/17/24 Transmitted Rocephin 09:00 Ceftriaxone Ivpb PHA 02/16/24 Transmitted Rocephin 11:30 Prednisone Tablet PHA 02/16/24 Transmitted 11:30 Prednisone Tablet PHA 02/17/24 Transmitted 10:00 Incentive Spirometry ORDERS 02/16/24 Transmitted 11:17 Date of Service: Feb 16, 2024 Billing Provider: ROME KC MD Common Visit Codes: [id number] INP/OBS CARE(HIGH) ROME KC MD Feb 16, 2024 11:26
[2024-02-16] MEDS: predniSONE 20 MG TAB PO ONE (11:33)
[2024-02-16] MEDS: cefTRIAXone 1GM/50ML D5W 50 ML IV ONE (11:41)
--- NOTE | 2024-02-16 11:54 | DVHSR ---
APPROVED REPORT EXAM: Two-dimensional and M-mode echocardiogram with Doppler and color Doppler. Blood Pressure: 117/77 mmHg INDICATION SOB RISK FACTORS Height: 5'7, Weight: 196 DIMENSIONS LVDd4.3 (3.8-5.7cm)LA (2D)3.4 (1.9-4.0cm)Aortic Root4.0 (2.0-3.7cm) LVDs2.9 (2.5-4.0cm)LA (MM) (1.9-4.0cm)Aortic Cusp Exc1.8 (1.5-2.0cm) EF (%) 60.0 (55-70%)Rt. Atrium4.8 (1.9-4.0cm)Asc. Aorta cm IVSd0.9 (0.7-1.1cm)RV (D) (1.8-2.4cm) PWd0.9 (0.7-1.1cm) Mitral Valve MitralMitral Stenosis E wave0.59m/sMV Mean GR.mmHg A wave1.03m/sMV Peak GR.mmHg E/A ratio0.62D MVAcm2 DECEL [id number] 1/2 Timems Aortic Valve Aortic ValveAortic Stenosis V11.11m/Kiersten Mean GR.5mmHg V21.44m/Kiersten Peak GR.8mmHg LVOT Diameter2.0 (1.8-2.4cm)Doppler AVA2.42cm2 Pulmonic Valve V20.95m/s LEFT VENTRICLE Normal left ventricular size. Wall thickness is normal. Ejection fraction is normal and is estimate d at 60% based on visual estimate. There is no gross wall motion abnormalities but endocardial defin ition is suboptimal. There is impaired relaxation of the left ventricle. RIGHT VENTRICLE The right ventricle is not well visualized. It is likely mildly dilated in size. Right ventricular systolic function appears to be preserved. ATRIA The left atrium was of normal size. Right atrium is mildly dilated. Not well visualized. MITRAL VALVE Normal structure and function. There is trace mitral regurgitation. PULMONIC VALVE Likely normal. TRICUSPID VALVE Normal structure and function. There is trace tricuspid regurgitation. PA systolic pressure is not adequately estimated. AORTIC VALVE Not well visualized. There is no evidence of hemodynamically significant stenosis or regurgitation. GREAT VESSELS The aortic root measures 4.0 cm in diameter at the level of the sinuses of Valsalva. Proximal ascend ing aorta is not well visualized. PERICARDIAL EFFUSION No significant pericardial effusion. IVC is of normal size and collapses normally with inspiration. Other Information Quality : Technically LimitedRhythm : Technically limited study due to patient position.body habitus. Conclusion The study is technically limited. Normal left ventricular size and systolic function. Ejection fraction is estimated at 60%. Likely mildly dilated right ventricle with a preserved systolic function. No hemodynamically significant valvular disease. PA systolic pressure is not adequately estimated. No significant pericardial effusion.
[2024-02-16] MEDS: AZITHROMYCIN 500MG/ 250ML 250 ML IV SCH (12:39)
[2024-02-16] MEDS: IPRATROPIUM BROM 0.5 MG/2.5ML INH SOL NEB PRN (23:35)
[2024-02-17] VITALS (12 sets, daily range): BP systolic 121–139; BP diastolic 65–82; PULSE 69–93; RESP 17–20; TEMP 97.4–98.1; O2SAT 94–99
[2024-02-17] MEDS: HYDROcodone-ACET 5/325MG TAB PO PRN (02:25)
[2024-02-17] MEDS ORDERED: METO25TA93 PO (03:17)
[2024-02-17] MEDS: cefTRIAXone 1GM/50ML D5W 50 ML IV SCH (09:28)
[2024-02-17] MEDS: predniSONE 20 MG TAB PO SCH (09:29)
--- NOTE | 2024-02-17 12:37 | DVHPN2 ---
Subjective feeling better today. notes he is more enegrized. still not at baseline. Reviewed: H&P Changes from previous H/P or p: Changes (improving. ) General: No Chills, No Night Sweats, No Fatigue Neurological: Weakness Eyes: No Pain, No Vision change, No Conjunctivae inflammation, No Eyelid inflammation, No Other, No Redness ENT: No Ear pain, No Ear discharge, No Nose pain, No Nose discharge, No Nose congestion, No Mouth pain, No Mouth swelling, No Throat pain, No Throat swelling, No Other Cardiovascular: No Chest Pain, No Palpitations, No Orthopnea, No Paroxysmal Noc. Dyspnea, No Edema, No Lt Headedness, No Other Respiratory: Cough; No Dry; Shortness of breath; No SOB with excertion; W heezing; No Hemoptysis, No Pleuritic Pain, No Sputum, No Other Gastrointestinal: No Nausea, No Vomiting, No Abdominal Pain, No Diarrhea, No Constipation, No Melena, No Hematochezia, No Other Genitourinary: No Dysuria, No Frequency, No Incontinence, No Hematuria, No Retention, No Other Musculoskeletal: No other, No neck pain, No shoulder pain, No arm pain, No back pain, No hand pain, No leg pain, No foot pain Skin: No Rash, No Lesions, No Jaundice, No Bruising, No Other Objective Vitals Vital Signs Date Time Temp Pulse Resp B/P (MAP) Pulse Ox O2 Delivery O2 Flow Rate FiO2 02/17/24 08:46 97.8 89 18 139/82 (101) 96 97.8 02/16/24 20:00 Oxymizer 5 N/A Intake/Output Intake and Output 02/17/24 07:00 Intake Total 1680 ml Balance 1680 ml Intake Oral 1130 ml IV Total 550 ml # Voids 5 # Bowel Movements 1 General Appearance: Alert, Oriented X3, Cooperative Lungs: Other (poos abelino movemebt. Wheezing and rhonci present throughout all lung smith. ) Cardiovascular: Regular rate, Normal S1, Normal S2 Abdomen: Normal bowel sounds, Soft Musculoskeletal: Normal motor function Extremities: No tenderness/swelling Medications Current Medications Medications Dose Ordered Sig/Chiquita Route Start Time Stop Time Status Last Admin Dose Admin Azithromycin 250 ml @ 125 mls/hr DAILY IV 02/16/24 10:00 02/17/24 10:51 125 MLS/HR Diagnostic Test (Pha) 1 strip ACHS 02/15/24 17:00 02/17/24 11:29 1 STRIP Insulin Human Regular ACHS SC 02/15/24 17:00 02/17/24 06:31 2 UNITS Dextrose 50 ml UD PRN IV 02/15/24 14:45 Sodium Chloride 1,000 ml @ 70 mls/hr [id number] IV 02/15/24 14:45 02/15/24 17:36 70 MLS/HR Ondansetron HCl 4 mg Q4HP PRN IV 02/15/24 14:45 Nitroglycerin 0.4 mg Q5MINP PRN SL 02/15/24 14:45 Morphine Sulfate 2 mg Q30M PRN IV 02/15/24 14:45 Famotidine 20 mg DAILY IV 02/16/24 10:00 02/17/24 09:29 20 MG Albuterol 2.5 mg Q6HWA NEB 02/15/24 18:00 02/16/24 19:19 2.5 MG Albuterol 2.5 mg Q4HPRN PRN NEB 02/15/24 14:45 02/16/24 10:49 2.5 MG Ipratropium [place] 0.5 mg Q6HWA NEB 02/15/24 18:00 02/16/24 19:19 0.5 MG Ipratropium [place] 0.5 mg Q4HPRN PRN NEB 02/15/24 14:45 Hold Ipratropium [place] 0.5 mg Q2HPRN PRN NEB 02/15/24 16:15 02/16/24 23:35 0.5 MG Acetaminophen 650 mg Q6HP PRN PO 02/15/24 23:00 02/17/24 06:39 650 MG Ceftriaxone Sodium 50 ml @ 100 mls/hr DAILY@09 IV 02/17/24 09:00 02/17/24 09:28 100 MLS/HR Prednisone 40 mg DAILY PO 02/17/24 10:00 02/17/24 09:29 40 MG Acetaminophen/ Hydrocodone Bitart 1 tab Q6HPRN PRN PO 02/16/24 21:00 02/17/24 02:25 1 TAB Laboratory Results Laboratory Tests 02/16/24 05:45 02/17/24 06:13 Microbiology Microbiology Date/Time Source Procedure Growth Status 02/15/24 10:45 Blood Blood Culture - Preliminary NO GROWTH AFTER 48 HOURS OF INCUBATION. Resulted Assessment/Plan Assessment/Plan Acute on chronic COPD exacerbation Community Acquired PNA - Present on admission. ongoing. Leukocytosis likely secondary to sepsis from PNA EM[place] - baseline noted 1.17. elevated on this admission as high as 1.48. - IMPROVING on current treatment regimen. - ceft azitro - oral pred 40 mg qday for 5 days - incentive spirometry - nebulizers -repeat Xray in 1 day - CR remains elevated. Montor and avaoid nephrotoxic agents. Diabetes uncontrolled Hemoglobin A1c ISS and Accu-Cheks History of vasculitis-autoimmune Monitor Chronic hypertension CHF continue home meds Chronic hyperlipidemia Continue home meds Chronic AFib Continue home medication FEN/PPX diet - Diabetic Diet. DVT ppx-continue home medication, Pradaxa and patient is ambulating PUD ppx - famotidine given with steroids Plan discussed with: Patient Date of Service: Feb 17, 2024 Billing Provider: ROME KC MD Common Visit Codes: [id number] INP/OBS CARE(HIGH) ROME KC MD Feb 17, 2024 12:37
[2024-02-17 13:10] LABS: Anion Gap 10 (5-15); Calcium 10.2 mg/dL (8.7-10.4); Carbon Dioxide 23 mmol/L (20-31); Potassium 4.5 mmol/L (3.5-5.1); Sodium 142 mmol/L (136-145)
[2024-02-17 13:11] LABS: Alanine Aminotransferase 43 U/L (7-40); Albumin 3.8 g/dL (3.2-4.8); Alkaline Phosphatase 176 U/L (46-116); Aspartate Aminotransferase 60 U/L (13-40); Bilirubin, Total 0.3 mg/dL (0.2-1.0); Blood Urea Nitrogen 37 mg/dL (9-23); Chloride 109 mmol/L (98-107); Glucose 140 mg/dL (74-106); Total Protein 6.7 g/dL (5.7-8.2)
--- NOTE | 2024-02-17 13:16 | ECG ---
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
[2024-02-18] VITALS (16 sets, daily range): BP systolic 120–150; BP diastolic 63–80; PULSE 73–117; RESP 15–23; TEMP 97.8–98.3; O2SAT 91–100
--- NOTE | 2024-02-18 05:56 | DVH ---
CHEST RADIOGRAPH Indication: f/u pna improvement. Technique: Single frontal view of the chest was obtained Comparison: XY CHEST XRAY 1 VIEW on DOS: 02/16/24, XY CHEST PORTABLE on DOS: 02/15/24, XY CHEST PORTABLE on DOS: 11/04/23 IMPRESSION: The heart appears stable in size. Pulmonary arteries appear enlarged. Patchy airspace opacity in the right lower lung appear similar. No sizable effusion or pneumothorax.
[2024-02-18 07:46] LABS: Mean Corpuscular Hemoglobin 29.9 pg (28.0-32.0)
[2024-02-18 07:49] LABS: Hematocrit 40.6 % (41.0-53.0); Hemoglobin 13.1 g/dL (13.5-17.5); Mean Corpuscular Hgb Conc. 32.3 g/dL (32.0-36.0); Mean Corpuscular Volume 92.5 fL (80.0-100.0); Platelet Count (auto) 373 10^3/uL (140-450); Red Blood Cells 4.39 10^6/uL (4.5-5.90); Red Cell Distribution Width 14.7 % (11.8-14.3)
[2024-02-18 07:53] LABS: White Blood Cell 30.7 10^3/uL (4.4-10.8)
[2024-02-18 07:55] LABS: Band Neutrophils % (manual) 0; Basophils % (manual) 0 (0.0-2.0); Blast Cells 0; Eosinophils % (manual) 0 (0-7); Metamyelocytes % 0; Myelocytes % 0; Promyelocytes % 0; Reactive Lymphocytes 0
[2024-02-18 09:34] LABS: Lymphocytes % (manual) 2 (10.0-50.0); Monocytes % (manual) 5 (0-12)
[2024-02-18 09:35] LABS: Large Platelets FEW; Platelet Estimate Adequa; RBC Morphology Normal
--- NOTE | 2024-02-18 11:10 | DVHPN2 ---
Reviewed: Care Plan, H&P Changes from previous H/P or p: No Changes General: No Chills, No Night Sweats, No Fatigue Neurological: Weakness Eyes: No Pain, No Vision change, No Conjunctivae inflammation, No Eyelid inflammation, No Other, No Redness ENT: No Ear pain, No Ear discharge, No Nose pain, No Nose discharge, No Nose congestion, No Mouth pain, No Mouth swelling, No Throat pain, No Throat swelling, No Other Cardiovascular: No Chest Pain, No Palpitations, No Orthopnea, No Paroxysmal Noc. Dyspnea, No Edema, No Lt Headedness, No Other Respiratory: Cough; No Dry; Shortness of breath; No SOB with excertion; W heezing; No Hemoptysis, No Pleuritic Pain, No Sputum, No Other Gastrointestinal: No Nausea, No Vomiting, No Abdominal Pain, No Diarrhea, No Constipation, No Melena, No Hematochezia, No Other Genitourinary: No Dysuria, No Frequency, No Incontinence, No Hematuria, No Retention, No Other Musculoskeletal: No other, No neck pain, No shoulder pain, No arm pain, No back pain, No hand pain, No leg pain, No foot pain Skin: No Rash, No Lesions, No Jaundice, No Bruising, No Other Objective Vitals Vital Signs Date Time Temp Pulse Resp B/P (MAP) Pulse Ox O2 Delivery O2 Flow Rate FiO2 02/18/24 09:00 98.3 108 23 150/74 (99) 95 98.3 02/18/24 06:19 Nasal Cannula* 3 32 Intake/Output Intake and Output 02/18/24 07:00 Intake Total 2750 ml Output Total 775 ml Balance 1975 ml Intake Oral 1450 ml IV Total 1300 ml Output Urine Total 775 ml # Bowel Movements 3 General Appearance: Alert, Oriented X3, Cooperative Lungs: Other (poos abelino movemebt. Wheezing and rhonci present throughout all lung smith. ) Cardiovascular: Regular rate, Normal S1, Normal S2 Abdomen: Normal bowel sounds, Soft Musculoskeletal: Normal motor function Extremities: No tenderness/swelling Medications Current Medications Medications Dose Ordered Sig/Chiquita Route Start Time Stop Time Status Last Admin Dose Admin Azithromycin 250 ml @ 125 mls/hr DAILY IV 02/16/24 10:00 02/17/24 10:51 125 MLS/HR Diagnostic Test (Pha) 1 strip ACHS 02/15/24 17:00 02/18/24 06:12 1 STRIP Insulin Human Regular ACHS SC 02/15/24 17:00 02/17/24 17:20 2 UNITS Dextrose 50 ml UD PRN IV 02/15/24 14:45 Sodium Chloride 1,000 ml @ 70 mls/hr [id number] IV 02/15/24 14:45 02/17/24 23:57 70 MLS/HR Ondansetron HCl 4 mg Q4HP PRN IV 02/15/24 14:45 Nitroglycerin 0.4 mg Q5MINP PRN SL 02/15/24 14:45 Morphine Sulfate 2 mg Q30M PRN IV 02/15/24 14:45 Famotidine 20 mg DAILY IV 02/16/24 10:00 02/17/24 09:29 20 MG Albuterol 2.5 mg Q6HWA NEB 02/15/24 18:00 02/18/24 06:19 2.5 MG Albuterol 2.5 mg Q4HPRN PRN NEB 02/15/24 14:45 02/16/24 10:49 2.5 MG Ipratropium [place] 0.5 mg Q6HWA NEB 02/15/24 18:00 02/18/24 06:19 0.5 MG Ipratropium [place] 0.5 mg Q4HPRN PRN NEB 02/15/24 14:45 Hold Ipratropium [place] 0.5 mg Q2HPRN PRN NEB 02/15/24 16:15 02/16/24 23:35 0.5 MG Acetaminophen 650 mg Q6HP PRN PO 02/15/24 23:00 02/17/24 06:39 650 MG Ceftriaxone Sodium 50 ml @ 100 mls/hr DAILY@09 IV 02/17/24 09:00 02/17/24 09:28 100 MLS/HR Prednisone 40 mg DAILY PO 02/17/24 10:00 02/17/24 09:29 40 MG Acetaminophen/ Hydrocodone Bitart 1 tab Q6HPRN PRN PO 02/16/24 21:00 02/17/24 21:43 1 TAB Laboratory Results Laboratory Tests 02/17/24 06:13 02/18/24 06:12 Microbiology Microbiology Date/Time Source Procedure Growth Status 02/15/24 10:45 Blood Blood Culture - Preliminary NO GROWTH AFTER 72 HOURS OF INCUBATION. Resulted Labs and/or images reviewed: Labs reviewed by me, Image(s) reviewed by me Assessment/Plan Assessment/Plan Covering for Dr. Mclean Septic shock with elevated white count of 30k hypoxia Acute hypoxic respiratory failure: Oxygen by nasal cannula Acute on chronic COPD exacerbation albuterol and Atrovent med neb Acute community-acquired pneumonia Rocephin azithromycin Diabetes Hypertension Autoimmune vasculitis Hypercholesterolemia Acute CHF exacerbation Chronic AFib Time spent 65 minutes Patient is full code Advanced care plan time 20 minutes at bedside WBC going up: DC prednisone tablets, pulmonary consult for Dr. Brito Plan discussed with: Patient Date of Service: Feb 18, 2024 Billing Provider: MARY SÁNCHEZ MD Common Visit Codes: [id number] CARE 30-74 MIN MARY SÁNCHEZ MD Feb 18, 2024 11:10
--- NOTE | 2024-02-18 11:28 | DVHINCON2 ---
Date of service: Feb 18, 2024 Referring Physician Vinay Cárdenas MD Reason for Consultation Acute hypoxic respiratory failure, COPD exacerbation and pneumonia, History of Present Illness A 78-year-old man with PMHx of hypertension, hyperlipidemia, diabetes, COPD, asthma, AFib, CHF, and autoimmune vasculitis who presents to the ED for shortness of breath x1 week. Per , patient was walking to the bathroom and became short of breath, she then called EMS to take him to the ED for evaluation. Patient reports that he is hard of hearing and uses hearing aids. Reports he gets SOB with minimal exertion. Patient reports being compliant with his medications. He denies chest pain, recent sick contacts, abdominal pain, N/V/D, weakness, lightheadedness, dizziness, and headaches. Patient was admitted for further care and pulmonary consultation is requested for evaluation and management due to the above findings Review of Systems: 14-point review of systems negative unless otherwise noted above. Past Medical History: hypertension, hyperlipidemia, diabetes, COPD, asthma, AFib, CHF, and autoimmune vasculitis Past Surgical History: Prostate surgery and left toe correction. Medications: Reviewed. Allergies: Alfuzosin and terazosin. Family History: No family history of premature CAD. No family history of lung disorders. Social History: Former smoker. No alcohol or illicit drug use. Family History: Patient reports no known family medical history. Allergies: Coded Allergies: Alfuzosin (Verified Allergy, Severe, 11/04/23) Terazosin (Verified Allergy, Severe, 11/04/23) Home Meds Reported Medications Metoprolol Succinate (Metoprolol Succinate Er) 25 Mg Tab, 1 TAB PO DAILY, #30 TAB 5 Refills 02/17/24 Dabigatran Etexilate Mesylate (Pradaxa) 75 Mg Cap, 1 CAP PO BID, #180 CAP 1 Refill 11/05/23 Nystatin-Triamcinolone (Triamcinolone/Nystatin) Oin, 1 EX, OIN 11/05/23 Tiotropium [place] Monohydrate (Spiriva Respimat) 2.5 Mcg/Act Spr, 2.5 MCG IN, SPRAY 11/05/23 Prednisone (PREDNISONE) 1 Mg Tb, 4 TAB PO DAILY, #360 TAB 3 Refills 11/05/23 Omeprazole (Prilosec Susp (For Gt)) 20 Mg Ss, 20 MG GT, ML 11/05/23 Montelukast Sodium (MONTELUKAST SODIUM) 10 Mg Tab, 1 TAB PO DAILY, #30 TAB 5 Refills 11/05/23 Mirtazapine (Mirtazapine Oral Disintegrating Tablet) 45 Mg Tab, 1 TAB PO QPM, #30 TAB 1 Refill 11/05/23 Lorazepam (ATIVAN TABLET) 0.5 Mg Tb, 1 TAB PO TID, #90 TAB 11/05/23 Loratadine (Claritin) 10 Mg Tab, 1 TAB PO DAILY, #30 TAB 5 Refills 11/05/23 Ipratropium [place] (Ipratropium [place]) 0.03 % Spr, 0.03 % NA, SPRAY 11/05/23 Guaifenesin (Guaifenesin) 400 Mg Tab, 400 MG PO, TAB 11/05/23 Fluticasone-Salmeterol (Advair Diskus 250/50) 1 Puff Ih, 1 PUFF INH BID, #3 INHALER 3 Refills 11/05/23 Dabigatran Etexilate Mesylate (Pradaxa) 150 Mg Cap, 1 CAP PO BID, #180 CAP 1 Refill 11/05/23 Azithromycin (Azithromycin) 500 Mg Tab, 1 TAB PO DAILY, #3 TAB 11/05/23 Atorvastatin Calcium (ATORVASTATIN CALCIUM) 40 Mg Tab, 1 TAB PO DAILY, #30 TAB 5 Refills 11/05/23 Albuterol Sulfate (Albuterol Sulfate) 0.083 % Neb, 1 VIAL NEB Q4HPRN, #50 VIAL 11/05/23 Ferrous Sulfate (FERROUS SULFATE) 325 Mg Tb, 1 TAB PO DAILY, #30 TAB 3 Refills 11/05/23 Fluticasone-Salmeterol (Advair Diskus 250/50) 1 Puff Ih, 1 PUFF INH BID, #3 INHALER 3 Refills 11/05/23 Fosinopril Sodium (Fosinopril Sodium) 40 Mg Tab, 40 MG PO, TAB 11/05/23 Furosemide (Furosemide) 40 Mg Tab, 1 TAB PO BID, #30 TAB 5 Refills 11/05/23 Galantamine Hydrobromide (Galantamine Hydrobromide) 16 Mg Cap, 16 MG PO, CAP 11/05/23 Discontinued Reported Medications Metoprolol Succinate (Metoprolol Succinate Er) 50 Mg Tab, 1 TAB PO DAILY, #30 TAB 5 Refills 11/05/23 Vital Signs Vital Signs Date Time Temp Pulse Resp B/P (MAP) Pulse Ox O2 Delivery O2 Flow Rate FiO2 02/18/24 09:00 98.3 108 23 150/74 (99) 95 98.3 02/18/24 06:19 Nasal Cannula* 3 32 Physical Exam Gen.: Patient lying in bed in no apparent distress. On supplemental oxygen. Head: Normocephalic, atraumatic. Eyes: EOMI/PERRLA. Ears: Normal hearing. Normal anatomy. Neck/trachea: Trachea midline, supple. Nose: Normal external anatomy. Mouth: Moist mucous membranes. Chest: Decreased air entry bilaterally. Bilateral wheezing. No rhonchi. Cardiovascular: Positive S1, positive S2. Regular rate and rhythm. Abdomen: Positive bowel sounds in all 4 quadrants. Soft, non-tender, non- distended. : Deferred. Rectal: Deferred. Skin: Warm, dry. Intact. Extremities: 2+ radial pulses bilaterally. No lower extremity edema. Neuro: Awake, alert, oriented x3. No gross motor or sensory deficits. Cranial nerves II through XII intact. Gait not assessed. Labs/Diagnostic Data Labs Test 02/18/24 06:12 02/18/24 05:45 02/17/24 06:13 02/16/24 05:45 Range/Units White Blood Count 30.7 #*H 4.4-10.8 10^3/uL Red Blood Count 4.39 L 4.5-5.90 10^6/uL Hemoglobin 13.1 L 13.5-17.5 g/dL Hematocrit 40.6 L 41.0-53.0 % Mean Corpuscular Volume 92.5 80.0-100.0 fL Mean Corpuscular Hemoglobin 29.9 28.0-32.0 pg Mean Corpuscular Hemoglobin Concent 32.3 32.0-36.0 g/dL Red Cell Distribution Width 14.7 H 11.8-14.3 % Platelet Count 373 # 140-450 10^3/uL Mean Platelet Volume 9.1 6.9-10.8 fL Neutrophils (%) (Auto) 37.0-80.0 % Lymphocytes (%) (Auto) 10.0-50.0 % Monocytes (%) (Auto) 0.0-12.0 % Basophils (%) (Auto) 0.0-2.0 % Neutrophils # (Auto) 1.6-8.6 10 ^3/uL Lymphocytes # (Auto) 0.4-5.4 10 ^3/uL Monocytes # (Auto) 0-1.3 10 ^3/uL Differential Total Cells Counted 100.0 100 Neutrophils % (Manual) 93 H 37.0-80.0 Band Neutrophils % (Manual) 0 Lymphocytes % (Manual) 2 L 10.0-50.0 Monocytes % (Manual) 5 0-12 Eosinophils % (Manual) 0 0-7 Basophils % (Manual) 0 0.0-2.0 Metamyelocytes % (manual) 0 Myelocytes % (Manual) 0 Promyelocytes % (Manual) 0 Blast Cells % (Manual) 0 Reactive Lymphocytes 0 Platelet Estimate [place] Large Platelets Few Red Blood Cell Morphology Normal POC Glucose 119 H 70-106 mg/dl Sodium Level 142 # 136-145 mmol/L Potassium Level 4.5 3.5-5.1 mmol/L Chloride Level 109 H 98-107 mmol/L Carbon Dioxide Level 23 20-31 mmol/L Anion Gap 10 5-15 Blood Urea Nitrogen 37 H 9-23 mg/dL Creatinine 1.37 H 0.700-1.30 mg/dL Glomerular Filtration Rate Calc 53 >90 mL/min BUN/Creatinine Ratio 27.0 H 10.0-20.0 Serum Glucose 140 H 74-106 mg/dL Calcium Level 10.2 8.7-10.4 mg/dL Total Bilirubin 0.3 0.2-1.0 mg/dL Aspartate Amino Transferase (AST) 60 H 13-40 U/L Alanine Aminotransferase (ALT) 43 H 7-40 U/L Alkaline Phosphatase 176 H 46-116 U/L Total Protein 6.7 5.7-8.2 g/dL Albumin 3.8 3.2-4.8 g/dL Eosinophils (%) (Auto) 0.0 0.0-7.0 % Eosinophils # (Auto) 0 0-0.8 10 ^3/uL Basophils # (Auto) 0 0-0.2 10 ^3/uL Nucleated Red Blood Cells 0.0 % Test 02/15/24 13:58 02/15/24 09:39 02/15/24 08:00 02/15/24 07:37 Range/Units Lactic Acid Level 1.4 0.4-2.0 mmol/L Troponin I High Sensitivity 17 </=54 ng/L Influenza Type A Antigen Negative Negative Influenza Type B Antigen Negative Negative SARS-CoV-2 Antigen (Rapid) Negative NEGATIVE Hemoglobin A1c 5.6 <5.7 % A1C B-Type Natriuretic Peptide 97.79 0-100 pg/mL Microbiology Date/Time Source Procedure Growth Status 02/15/24 10:45 Blood Blood Culture - Preliminary NO GROWTH AFTER 72 HOURS OF INCUBATION. Resulted Assessment Impression: Acute hypoxic respiratory failure Dependence on supplemental oxygen AE COPD Pneumonia, likely gram negative Hx of nicotine dependence Congestive heart failure Obesity Plan: Supplemental oxygen 4 LPM NC Titrate to keep O2 sats above 92%. Taper O2 as tolerated. BiPAP PRN Continue bronchodilators Continue antibiotics - cefepime added; continue azithromycin Wheezing - start Solu-Medrol Start Pulmicort CXR reviewed, demonstrates pulmonary vascular congestion, RLL opacities. No pleural effusion or pneumothorax. Diurese as tolerated w/ Lasix - Lasix 20 mg IVP x1 given. Monitor renal function. Monitor electrolytes. Supplement as necessary. Monitor ins and outs. Diet and lifestyle modifications for weight reduction Obesity - complicates all care DVT prophylaxis. Prognosis: Poor given patient's multiple co-morbidities. Rest of plan per hospitalist and other consultants. Thank you, Dr. Cárdenas, for allowing me to participate in this patient's care. Further recommendations will depend on the patient's clinical course. Please do not hesitate to contact me if you have any questions or concerns. This medical document was created using an electronic medical record system with [employer] dictation system. Although these documentations are being carefully reviewed, there may still be some phonetic and typographical changes. The errors are purely typographical, due to imperfection on the software program, and do not reflect any compromise in the patient's medical care. Plan discussed with: Patient, Other (TI Dennis/MD Cárdenas) ERNESTINA OLIVAS MD Feb 18, 2024 11:28
[2024-02-18] MEDS: DABIGATRAN 75 MG CAP PO SCH (11:55)
[2024-02-18] MEDS: CEFEPIME 2GM/50ML NS 50 ML IV ONE (12:28)
[2024-02-18] MEDS: METOPROLOL SUCCINATE XL 50 MG TAB PO SCH (12:58)
[2024-02-18] MEDS: FOSINOPRIL SODIUM 10 MG TAB PO SCH (13:59)
[2024-02-18] MEDS: LORazepam 0.5 MG TAB PO PRN (14:47)
[2024-02-18] MEDS: FUROSEMIDE 20 MG/2 ML VIAL IV SCH (17:50)
[2024-02-18] MEDS ORDERED: FUROSEMIDE 40 MG TAB PO SCH (18:00)
[2024-02-18] MEDS: BUDESONIDE (INHALATION) 0.5 MG/2 ML NEB NEB SCH (18:45)
[2024-02-18] MEDS ORDERED: CEFEPIME 1GM/ 50ML 50 ML IV SCH (22:00)
[2024-02-18] MEDS: CEFEPIME 2GM/50ML NS 50 ML IV SCH (22:16)
[2024-02-18] MEDS: methylPREDNISolone SOD SUCC 40 MG/ML VL IV SCH (22:16)
[2024-02-18] MEDS: MIRTAZAPINE 30 MG TAB PO SCH (22:17)
[2024-02-19] VITALS (18 sets, daily range): BP systolic 119–157; BP diastolic 69–86; PULSE 67–104; RESP 16–22; TEMP 97.6–98.6; O2SAT 91–100
--- NOTE | 2024-02-19 11:29 | DVHPN2 ---
Reviewed: Care Plan, H&P Changes from previous H/P or p: No Changes General: No Chills, No Night Sweats, No Fatigue Neurological: Weakness Eyes: No Pain, No Vision change, No Conjunctivae inflammation, No Eyelid inflammation, No Other, No Redness ENT: No Ear pain, No Ear discharge, No Nose pain, No Nose discharge, No Nose congestion, No Mouth pain, No Mouth swelling, No Throat pain, No Throat swelling, No Other Cardiovascular: No Chest Pain, No Palpitations, No Orthopnea, No Paroxysmal Noc. Dyspnea, No Edema, No Lt Headedness, No Other Respiratory: Cough; No Dry; Shortness of breath; No SOB with excertion; W heezing; No Hemoptysis, No Pleuritic Pain, No Sputum, No Other Gastrointestinal: No Nausea, No Vomiting, No Abdominal Pain, No Diarrhea, No Constipation, No Melena, No Hematochezia, No Other Genitourinary: No Dysuria, No Frequency, No Incontinence, No Hematuria, No Retention, No Other Musculoskeletal: No other, No neck pain, No shoulder pain, No arm pain, No back pain, No hand pain, No leg pain, No foot pain Skin: No Rash, No Lesions, No Jaundice, No Bruising, No Other Objective Vitals Vital Signs Date Time Temp Pulse Resp B/P (MAP) Pulse Ox O2 Delivery O2 Flow Rate FiO2 02/19/24 10:14 77 138/81 02/19/24 10:00 97 Room Air* 0 21 02/19/24 09:00 98.0 18 98.0 Intake/Output Intake and Output 02/19/24 07:00 Intake Total 480 ml Output Total 1000 ml Balance -520 ml Intake Oral 480 ml Output Urine Total 1000 ml # Voids 3 General Appearance: Alert, Oriented X3, Cooperative Lungs: Other (poos abelino movemebt. Wheezing and rhonci present throughout all lung smith. ) Cardiovascular: Regular rate, Normal S1, Normal S2 Abdomen: Normal bowel sounds, Soft Musculoskeletal: Normal motor function Extremities: No tenderness/swelling Medications Current Medications Medications Dose Ordered Sig/Chiquita Route Start Time Stop Time Status Last Admin Dose Admin Azithromycin 250 ml @ 125 mls/hr DAILY IV 02/16/24 10:00 02/18/24 15:11 125 MLS/HR Diagnostic Test (Pha) 1 strip ACHS 02/15/24 17:00 02/19/24 06:31 1 STRIP Insulin Human Regular ACHS SC 02/15/24 17:00 02/18/24 13:00 3 UNITS Dextrose 50 ml UD PRN IV 02/15/24 14:45 Ondansetron HCl 4 mg Q4HP PRN IV 02/15/24 14:45 Nitroglycerin 0.4 mg Q5MINP PRN SL 02/15/24 14:45 Morphine Sulfate 2 mg Q30M PRN IV 02/15/24 14:45 Famotidine 20 mg DAILY IV 02/16/24 10:00 02/19/24 10:15 20 MG Albuterol 2.5 mg Q6HWA NEB 02/15/24 18:00 02/19/24 06:59 2.5 MG Ipratropium [place] 0.5 mg Q6HWA NEB 02/15/24 18:00 02/19/24 06:59 0.5 MG Acetaminophen 650 mg Q6HP PRN PO 02/15/24 23:00 02/17/24 06:39 650 MG Acetaminophen/ Hydrocodone Bitart 1 tab Q6HPRN PRN PO 02/16/24 21:00 02/19/24 04:10 1 TAB Methylprednisolone Sodium Succinate 40 mg BID IV 02/18/24 22:00 02/19/24 10:14 40 MG Budesonide 0.5 mg BID NEB 02/18/24 22:00 02/19/24 07:00 0.5 MG Furosemide 20 mg BIDD IV 02/18/24 18:00 02/21/24 17:59 02/19/24 05:50 20 MG Cefepime HCl 50 ml @ 12.5 mls/hr Q12HR IV 02/18/24 22:00 UNV Dabigatran 150 mg BID PO 02/18/24 11:55 02/19/24 10:09 150 MG Fosinopril Sodium 40 mg DAILY PO 02/18/24 11:30 02/19/24 10:14 40 MG Furosemide 40 mg BIDD PO 02/18/24 18:00 UNV Metoprolol Succinate 25 mg DAILY PO 02/18/24 11:30 02/19/24 10:14 25 MG Mirtazapine 45 mg HS PO 02/18/24 22:00 02/18/24 22:17 45 MG Lorazepam 0.5 mg Q6HP PRN PO 02/18/24 11:30 02/18/24 14:47 0.5 MG Cefepime HCl 50 ml @ 12.5 mls/hr Q12HR IV 02/18/24 22:00 02/19/24 10:15 12.5 MLS/HR Laboratory Results Laboratory Tests 02/17/24 06:13 02/18/24 06:12 Microbiology Microbiology Date/Time Source Procedure Growth Status 02/15/24 10:45 Blood Blood Culture - Preliminary NO GROWTH AFTER 72 HOURS OF INCUBATION. Resulted Labs and/or images reviewed: Labs reviewed by me, Image(s) reviewed by me Assessment/Plan Assessment/Plan Covering for Dr. Mclean Septic shock with elevated white count of 30k hypoxia Acute hypoxic respiratory failure: Oxygen by nasal cannula Acute on chronic COPD exacerbation albuterol and Atrovent med neb Solu-Medrol 40 mg IV b.i.d. Acute community-acquired pneumonia placed on cefepime, pulmonary consult by Dr. Brito appreciated Diabetes Hypertension Autoimmune vasculitis Hypercholesterolemia Acute CHF exacerbation Hard of hearing PTSD Dementia Chronic AFib Blaire test negative Flu test neg Ramya [phone] at bedside Time spent 55 minutes Patient is full code at bedside Plan discussed with: Patient My Orders Orders - MARY SÁNCHEZ MD Procedure Category Date Status Time *Consult CONS 02/18/24 Transmitted / 11:11 Fosinopril Tablet PHA 02/18/24 In Process (Monopril Tablet) 11:30 Metoprolol Xl PHA 02/18/24 In Process Succinate (Toprol Xl) 11:30 Mirtazapine Tablet PHA 02/18/24 In Process (Remeron Tablet) 22:00 Lorazepam Tablet PHA 02/18/24 In Process (Ativan Tablet) 11:30 Dabigatran Capsule PHA 02/18/24 In Process (Pradaxa Capsule) 11:55 Consistent DIET 02/18/24 Transmitted Carb(Ccho)Diabetes Dinner Date of Service: Feb 19, 2024 Billing Provider: MARY SÁNCHEZ MD Common Visit Codes: [id number] INP/OBS CARE(HIGH) Secondary Visit Codes: [id number] CARE PLAN 30 MINUTES MARY SÁNCHEZ MD Feb 19, 2024 11:29
--- NOTE | 2024-02-19 21:56 | DVHPN2 ---
Progress Note - Dictate Date Seen: Feb 19, 2024 Medical Necessity Reason Pt with a Central, PICC or Fol: No Subjective Patient seen and examined at bedside. Remains on supplemental oxygen Overnight events reviewed. vital signs Vital Sign Date Time Temp Pulse Resp B/P (MAP) Pulse Ox O2 Delivery O2 Flow Rate FiO2 02/19/24 19:38 84 18 98 02/19/24 19:30 Nasal Cannula* 4 36 02/19/24 18:12 129/70 02/19/24 17:00 97.8 97.8 Total Intake and Output 02/18/24 02/18/24 02/19/24 15:00 23:00 07:00 Intake Total 240 ml 240 ml Output Total 500 ml 500 ml Balance -260 ml -260 ml medications Current Medications Medications Dose Ordered Sig/Chiquita Route Start Time Stop Time Status Last Admin Dose Admin Azithromycin 250 ml @ 125 mls/hr DAILY IV 02/16/24 10:00 02/19/24 14:40 125 MLS/HR Diagnostic Test (Pha) 1 strip ACHS 02/15/24 17:00 02/19/24 17:22 1 STRIP Insulin Human Regular ACHS SC 02/15/24 17:00 02/19/24 18:12 3 UNITS Dextrose 50 ml UD PRN IV 02/15/24 14:45 Ondansetron HCl 4 mg Q4HP PRN IV 02/15/24 14:45 Nitroglycerin 0.4 mg Q5MINP PRN SL 02/15/24 14:45 Morphine Sulfate 2 mg Q30M PRN IV 02/15/24 14:45 Famotidine 20 mg DAILY IV 02/16/24 10:00 02/19/24 10:15 20 MG Albuterol 2.5 mg Q6HWA NEB 02/15/24 18:00 02/19/24 19:33 2.5 MG Ipratropium [place] 0.5 mg Q6HWA NEB 02/15/24 18:00 02/19/24 19:33 0.5 MG Acetaminophen 650 mg Q6HP PRN PO 02/15/24 23:00 02/17/24 06:39 650 MG Acetaminophen/ Hydrocodone Bitart 1 tab Q6HPRN PRN PO 02/16/24 21:00 02/19/24 04:10 1 TAB Methylprednisolone Sodium Succinate 40 mg BID IV 02/18/24 22:00 02/19/24 10:14 40 MG Budesonide 0.5 mg BID NEB 02/18/24 22:00 02/19/24 07:00 0.5 MG Furosemide 20 mg BIDD IV 02/18/24 18:00 02/21/24 17:59 02/19/24 18:12 20 MG Cefepime HCl 50 ml @ 12.5 mls/hr Q12HR IV 02/18/24 22:00 UNV Dabigatran 150 mg BID PO 02/18/24 11:55 02/19/24 10:09 150 MG Fosinopril Sodium 40 mg DAILY PO 02/18/24 11:30 02/19/24 10:14 40 MG Furosemide 40 mg BIDD PO 02/18/24 18:00 UNV Metoprolol Succinate 25 mg DAILY PO 02/18/24 11:30 02/19/24 10:14 25 MG Mirtazapine 45 mg HS PO 02/18/24 22:00 02/18/24 22:17 45 MG Lorazepam 0.5 mg Q6HP PRN PO 02/18/24 11:30 02/19/24 19:13 0.5 MG Cefepime HCl 50 ml @ 12.5 mls/hr Q12HR IV 02/18/24 22:00 02/19/24 10:15 12.5 MLS/HR objective Gen.: Patient lying in bed in no apparent distress. On supplemental oxygen. Head: Normocephalic, atraumatic. Eyes: EOMI/PERRLA. Ears: Normal hearing. Normal anatomy. Neck/trachea: Trachea midline, supple. Nose: Normal external anatomy. Mouth: Moist mucous membranes. Chest: Decreased air entry bilaterally. No wheezing or rhonchi. Cardiovascular: Positive S1, positive S2. Regular rate and rhythm. Abdomen: Positive bowel sounds in all 4 quadrants. Soft, non-tender, non- distended. : Deferred. Rectal: Deferred. Skin: Warm, dry. Intact. Extremities: 2+ radial pulses bilaterally. No lower extremity edema. Neuro: Awake, alert, oriented x3. No gross motor or sensory deficits. Cranial nerves II through XII intact. Gait not assessed. laboratory and microbiology Laboratory Tests 02/18/24 06:12 02/17/24 06:13 Test 02/17/24 06:13 Range/Units Serum Glucose 140 H 74-106 mg/dL Assessment/Plan Impression: Acute hypoxic respiratory failure Dependence on supplemental oxygen AE COPD Pneumonia, likely gram negative Hx of nicotine dependence Congestive heart failure Obesity Events: Remains on supplemental oxygen, 2 LPM NC Taper O2 as tolerated Continue bronchodilators Continue IV steroids Continue antibiotics Diurese as tolerated w/ Lasix Monitor renal function Monitor ins and outs PT evaluation Plan for SNF placement. Labs and imaging reviewed. Rest of plan as noted below. Plan: Supplemental oxygen Titrate to keep O2 sats above 92%. BiPAP PRN CXR on 02/18/24 demonstrates pulmonary vascular congestion, RLL opacities. No pleural effusion or pneumothorax. Continue bronchodilators Continue antibiotics - cefepime added; continue azithromycin Continue IV steroids - Solu-Medrol Pulmicort BID Diurese as tolerated w/ Lasix Monitor renal function. Monitor electrolytes. Supplement as necessary. Monitor ins and outs. Diet and lifestyle modifications for weight reduction Obesity - complicates all care DVT prophylaxis. Prognosis: Poor given patient's multiple co-morbidities. Rest of plan per hospitalist and other consultants. Thank you, Dr. Cárdenas, for allowing me to participate in this patient's care. Further recommendations will depend on the patient's clinical course. Please do not hesitate to contact me if you have any questions or concerns. This medical document was created using an electronic medical record system with [employer] dictation system. Although these documentations are being carefully reviewed, there may still be some phonetic and typographical changes. The errors are purely typographical, due to imperfection on the software program, and do not reflect any compromise in the patient's medical care. Plan discussed with: Patient, Other (RN Jeannie) ERNESTINA OLIVAS MD Feb 19, 2024 21:56
[2024-02-20] VITALS (11 sets, daily range): BP systolic 145–163; BP diastolic 74–104; PULSE 53–109; RESP 16–28; TEMP 97.7; O2SAT 92–98
[2024-02-20] MEDS: HALOPERIDOL LACTATE 5 MG/ML INJ VIAL IM ONE (00:44)
--- NOTE | 2024-02-20 08:33 | DVHPN2 ---
Reviewed: Care Plan, H&P Changes from previous H/P or p: No Changes General: No Chills, No Night Sweats, No Fatigue Neurological: Weakness Eyes: No Pain, No Vision change, No Conjunctivae inflammation, No Eyelid inflammation, No Other, No Redness ENT: No Ear pain, No Ear discharge, No Nose pain, No Nose discharge, No Nose congestion, No Mouth pain, No Mouth swelling, No Throat pain, No Throat swelling, No Other Cardiovascular: No Chest Pain, No Palpitations, No Orthopnea, No Paroxysmal Noc. Dyspnea, No Edema, No Lt Headedness, No Other Respiratory: Cough; No Dry; Shortness of breath; No SOB with excertion; W heezing; No Hemoptysis, No Pleuritic Pain, No Sputum, No Other Gastrointestinal: No Nausea, No Vomiting, No Abdominal Pain, No Diarrhea, No Constipation, No Melena, No Hematochezia, No Other Genitourinary: No Dysuria, No Frequency, No Incontinence, No Hematuria, No Retention, No Other Musculoskeletal: No other, No neck pain, No shoulder pain, No arm pain, No back pain, No hand pain, No leg pain, No foot pain Skin: No Rash, No Lesions, No Jaundice, No Bruising, No Other Objective Vitals Vital Signs Date Time Temp Pulse Resp B/P (MAP) Pulse Ox O2 Delivery O2 Flow Rate FiO2 02/20/24 07:00 64 16 98 02/20/24 06:52 Nasal Cannula* 4 36 02/20/24 05:48 161/104 02/19/24 17:00 97.8 97.8 Intake/Output Intake and Output 02/20/24 07:00 Intake Total 936 ml Output Total 750 ml Balance 186 ml Intake Oral 636 ml IV Total 300 ml Output Urine Total 750 ml # Voids 4 General Appearance: Alert, Oriented X3, Cooperative Lungs: Other (poos abelino movemebt. Wheezing and rhonci present throughout all lung smith. ) Cardiovascular: Regular rate, Normal S1, Normal S2 Abdomen: Normal bowel sounds, Soft Musculoskeletal: Normal motor function Extremities: No tenderness/swelling Medications Current Medications Medications Dose Ordered Sig/Chiquita Route Start Time Stop Time Status Last Admin Dose Admin Azithromycin 250 ml @ 125 mls/hr DAILY IV 02/16/24 10:00 02/19/24 14:40 125 MLS/HR Diagnostic Test (Pha) 1 strip ACHS 02/15/24 17:00 02/19/24 17:22 1 STRIP Insulin Human Regular ACHS SC 02/15/24 17:00 02/19/24 18:12 3 UNITS Dextrose 50 ml UD PRN IV 02/15/24 14:45 Ondansetron HCl 4 mg Q4HP PRN IV 02/15/24 14:45 Nitroglycerin 0.4 mg Q5MINP PRN SL 02/15/24 14:45 Morphine Sulfate 2 mg Q30M PRN IV 02/15/24 14:45 Famotidine 20 mg DAILY IV 02/16/24 10:00 02/19/24 10:15 20 MG Albuterol 2.5 mg Q6HWA NEB 02/15/24 18:00 02/20/24 06:52 2.5 MG Ipratropium Archie 0.5 mg Q6HWA NEB 02/15/24 18:00 02/20/24 06:52 0.5 MG Acetaminophen 650 mg Q6HP PRN PO 02/15/24 23:00 02/17/24 06:39 650 MG Acetaminophen/ Hydrocodone Bitart 1 tab Q6HPRN PRN PO 02/16/24 21:00 02/19/24 04:10 1 TAB Methylprednisolone Sodium Succinate 40 mg BID IV 02/18/24 22:00 02/19/24 10:14 40 MG Budesonide 0.5 mg BID NEB 02/18/24 22:00 02/20/24 06:52 0.5 MG Furosemide 20 mg BIDD IV 02/18/24 18:00 02/21/24 17:59 02/20/24 05:48 20 MG Cefepime HCl 50 ml @ 12.5 mls/hr Q12HR IV 02/18/24 22:00 UNV Dabigatran 150 mg BID PO 02/18/24 11:55 02/19/24 10:09 150 MG Fosinopril Sodium 40 mg DAILY PO 02/18/24 11:30 02/19/24 10:14 40 MG Furosemide 40 mg BIDD PO 02/18/24 18:00 UNV Metoprolol Succinate 25 mg DAILY PO 02/18/24 11:30 02/19/24 10:14 25 MG Mirtazapine 45 mg HS PO 02/18/24 22:00 02/18/24 22:17 45 MG Lorazepam 0.5 mg Q6HP PRN PO 02/18/24 11:30 02/19/24 19:13 0.5 MG Cefepime HCl 50 ml @ 12.5 mls/hr Q12HR IV 02/18/24 22:00 02/19/24 10:15 12.5 MLS/HR Laboratory Results Laboratory Tests 02/17/24 06:13 02/18/24 06:12 Microbiology Microbiology Date/Time Source Procedure Growth Status 02/15/24 10:45 Blood Blood Culture - Preliminary NO GROWTH AFTER 72 HOURS OF INCUBATION. Resulted Labs and/or images reviewed: Labs reviewed by me, Image(s) reviewed by me Assessment/Plan Assessment/Plan Covering for Dr. Mclean Septic shock with elevated white count of 30k hypoxia Acute hypoxic respiratory failure: Oxygen by nasal cannula Acute on chronic COPD exacerbation albuterol and Atrovent med neb Solu-Medrol 40 mg IV b.i.d. Acute community-acquired pneumonia placed on cefepime, pulmonary consult by Dr. Brito appreciated, patient on cefepime 2 g IV q.12h and azithromycin 500 mg IV daily Diabetes Hypertension Autoimmune vasculitis Hypercholesterolemia Acute CHF exacerbation Hard of hearing PTSD Dementia Chronic AFib Blaire test negative Flu test neg Nargis [phone] at bedside Time spent 55 minutes Patient is full code Discussed with the patient about going to custodial facility for two weeks of IV antibiotics for pneumonia patient adamantly refusing and the patient's wants him to be discharged home when stable at bedside Plan discussed with: Patient, Spouse My Orders Orders - MARY SÁNCHEZ MD Procedure Category Date Status Time Complete Blood Count LAB 02/20/24 Logged 04:00 Comprehensive LAB 02/20/24 Logged Metabolic Panel 04:00 Insert Midline ORDERS 02/19/24 Transmitted 11:24 Pt Request For Service PT 02/19/24 Logged 11:26 Date of Service: Feb 20, 2024 Billing Provider: MARY SÁNCHEZ MD Common Visit Codes: [id number] INP/OBS CARE(HIGH) MARY SÁNCHEZ MD Feb 20, 2024 08:33
--- NOTE | 2024-02-20 10:48 | ECG ---
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
[2024-02-20 11:27] LABS: Basophils # (auto) 0 10 ^3/uL (0-0.2); Basophils % (auto) 0.1 % (0.0-2.0); Eosinophils # (auto) 0 10 ^3/uL (0-0.8); Eosinophils % (auto) 0.1 % (0.0-7.0); Hematocrit 38.3 % (41.0-53.0); Hemoglobin 12.6 g/dL (13.5-17.5); Lymphocytes # (auto) 0.9 10 ^3/uL (0.4-5.4); Lymphocytes % (auto) 4.8 % (10.0-50.0); Mean Corpuscular Hemoglobin 29.4 pg (28.0-32.0); Mean Corpuscular Hgb Conc. 32.7 g/dL (32.0-36.0); Mean Corpuscular Volume 89.7 fL (80.0-100.0); Monocytes # (auto) 1.3 10 ^3/uL (0-1.3); Monocytes % (auto) 7.1 % (0.0-12.0); Neutrophils # (auto) 16.6 10 ^3/uL (1.6-8.6); Neutrophils % (auto) 87.9 % (37.0-80.0); Nucleated Red Blood Cells % 0.1 %; Platelet Count (auto) 238 10^3/uL (140-450); Red Blood Cells 4.28 10^6/uL (4.5-5.90); Red Cell Distribution Width 14.6 % (11.8-14.3); White Blood Cell 18.9 10^3/uL (4.4-10.8)
[2024-02-20 11:41] LABS: Alanine Aminotransferase 26 U/L (7-40); Albumin 3.7 g/dL (3.2-4.8); Anion Gap 5 (5-15); Aspartate Aminotransferase 22 U/L (13-40); BUN/Creatinine Ratio 32.1 (10.0-20.0); Calcium 9.3 mg/dL (8.7-10.4); Chloride 106 mmol/L (98-107); Potassium 3.8 mmol/L (3.5-5.1); Sodium 143 mmol/L (136-145)
[2024-02-20 11:42] LABS: Bilirubin, Total 0.4 mg/dL (0.2-1.0); Total Protein 6.3 g/dL (5.7-8.2)
[2024-02-20 11:49] LABS: Alkaline Phosphatase 118 U/L (46-116); Blood Urea Nitrogen 43 mg/dL (9-23); Carbon Dioxide 32 mmol/L (20-31); Glucose 125 mg/dL (74-106)
[2024-02-20] MEDS: LORazepam 0.5 MG TAB PO ONE (16:17)
--- NOTE | 2024-02-20 23:25 | DVHPN2 ---
Progress Note - Dictate Date Seen: Feb 20, 2024 Medical Necessity Reason Pt with a Central, PICC or Fol: No Subjective Patient seen and examined at bedside. Remains on supplemental oxygen Overnight events reviewed. vital signs Vital Sign Date Time Temp Pulse Resp B/P (MAP) Pulse Ox O2 Delivery O2 Flow Rate FiO2 02/20/24 19:57 73 18 94 02/20/24 19:49 Room Air* 0 21 02/20/24 09:55 128/68 02/19/24 17:00 97.8 97.8 Total Intake and Output 02/19/24 02/19/24 02/20/24 15:00 23:00 07:00 Intake Total 50 ml 250 ml 636 ml Output Total 750 ml Balance 50 ml 250 ml -114 ml medications Current Medications Medications Dose Ordered Sig/Chiquita Route Start Time Stop Time Status Last Admin Dose Admin Azithromycin 250 ml @ 125 mls/hr DAILY IV 02/16/24 10:00 02/20/24 09:44 125 MLS/HR Diagnostic Test (Pha) 1 strip ACHS 02/15/24 17:00 02/20/24 11:30 1 STRIP Insulin Human Regular ACHS SC 02/15/24 17:00 02/20/24 11:30 2 UNITS Dextrose 50 ml UD PRN IV 02/15/24 14:45 Ondansetron HCl 4 mg Q4HP PRN IV 02/15/24 14:45 Nitroglycerin 0.4 mg Q5MINP PRN SL 02/15/24 14:45 Morphine Sulfate 2 mg Q30M PRN IV 02/15/24 14:45 Famotidine 20 mg DAILY IV 02/16/24 10:00 02/20/24 09:55 20 MG Albuterol 2.5 mg Q6HWA NEB 02/15/24 18:00 02/20/24 19:49 2.5 MG Ipratropium [place] 0.5 mg Q6HWA NEB 02/15/24 18:00 02/20/24 19:48 0.5 MG Acetaminophen 650 mg Q6HP PRN PO 02/15/24 23:00 02/17/24 06:39 650 MG Acetaminophen/ Hydrocodone Bitart 1 tab Q6HPRN PRN PO 02/16/24 21:00 02/19/24 04:10 1 TAB Methylprednisolone Sodium Succinate 40 mg BID IV 02/18/24 22:00 02/20/24 20:53 40 MG Budesonide 0.5 mg BID NEB 02/18/24 22:00 02/20/24 19:50 0.5 MG Furosemide 20 mg BIDD IV 02/18/24 18:00 02/21/24 17:59 02/20/24 05:48 20 MG Cefepime HCl 50 ml @ 12.5 mls/hr Q12HR IV 02/18/24 22:00 UNV Dabigatran 150 mg BID PO 02/18/24 11:55 02/20/24 20:54 150 MG Fosinopril Sodium 40 mg DAILY PO 02/18/24 11:30 02/20/24 09:55 40 MG Furosemide 40 mg BIDD PO 02/18/24 18:00 UNV Metoprolol Succinate 25 mg DAILY PO 02/18/24 11:30 02/20/24 09:54 25 MG Mirtazapine 45 mg HS PO 02/18/24 22:00 02/20/24 20:53 45 MG Lorazepam 0.5 mg Q6HP PRN PO 02/18/24 11:30 02/19/24 19:13 0.5 MG Cefepime HCl 50 ml @ 12.5 mls/hr Q12HR IV 02/18/24 22:00 02/20/24 20:53 12.5 MLS/HR objective Gen.: Patient lying in bed in no apparent distress. On supplemental oxygen. Head: Normocephalic, atraumatic. Eyes: EOMI/PERRLA. Ears: Normal hearing. Normal anatomy. Neck/trachea: Trachea midline, supple. Nose: Normal external anatomy. Mouth: Moist mucous membranes. Chest: Decreased air entry bilaterally. No wheezing or rhonchi. Cardiovascular: Positive S1, positive S2. Regular rate and rhythm. Abdomen: Positive bowel sounds in all 4 quadrants. Soft, non-tender, non- distended. : Deferred. Rectal: Deferred. Skin: Warm, dry. Intact. Extremities: 2+ radial pulses bilaterally. No lower extremity edema. Neuro: Awake, alert, oriented x3. No gross motor or sensory deficits. Cranial nerves II through XII intact. Gait not assessed. laboratory and microbiology Laboratory Tests 02/20/24 11:03 Test 02/20/24 11:03 Range/Units Serum Glucose 125 H 74-106 mg/dL Assessment/Plan Impression: Acute hypoxic respiratory failure Dependence on supplemental oxygen AE COPD Pneumonia, likely gram negative Hx of nicotine dependence Congestive heart failure Obesity Events: Remains on supplemental oxygen, 3 LPM NC Taper O2 as tolerated Continue bronchodilators Continue IV steroids Continue antibiotics Diurese as tolerated w/ Lasix Monitor renal function Monitor ins and outs PT evaluation Plan for SNF placement. Labs and imaging reviewed. Rest of plan as noted below. Plan: Supplemental oxygen Titrate to keep O2 sats above 92%. BiPAP PRN CXR on 02/18/24 demonstrates pulmonary vascular congestion, RLL opacities. No pleural effusion or pneumothorax. Continue bronchodilators Continue antibiotics - cefepime added; continue azithromycin Continue IV steroids - Solu-Medrol Pulmicort BID Diurese as tolerated w/ Lasix Monitor renal function. Monitor electrolytes. Supplement as necessary. Monitor ins and outs. Diet and lifestyle modifications for weight reduction Obesity - complicates all care DVT prophylaxis. Prognosis: Poor given patient's multiple co-morbidities. Rest of plan per hospitalist and other consultants. Thank you, Dr. Cárdenas, for allowing me to participate in this patient's care. Further recommendations will depend on the patient's clinical course. Please do not hesitate to contact me if you have any questions or concerns. This medical document was created using an electronic medical record system with [employer] dictation system. Although these documentations are being carefully reviewed, there may still be some phonetic and typographical changes. The errors are purely typographical, due to imperfection on the software program, and do not reflect any compromise in the patient's medical care. Dietary Evaluation Review Comments: follow CCHO-60 diet, monitor PO intake to meet 75% of his needs Expected Outcomes/Goals: controlled DM, gradual wt loss. Plan discussed with: Patient, Other (TI [place]) ERNESTINA OLIVAS MD Feb 20, 2024 23:25
[2024-02-21] VITALS (10 sets, daily range): BP systolic 138–150; BP diastolic 70–76; PULSE 42–78; RESP 14–19; TEMP 97.6–97.8; O2SAT 96–100
--- NOTE | 2024-02-21 12:32 | DVHPN2 ---
Reviewed: Care Plan, H&P Changes from previous H/P or p: No Changes General: No Chills, No Night Sweats, No Fatigue Neurological: Weakness Eyes: No Pain, No Vision change, No Conjunctivae inflammation, No Eyelid inflammation, No Other, No Redness ENT: No Ear pain, No Ear discharge, No Nose pain, No Nose discharge, No Nose congestion, No Mouth pain, No Mouth swelling, No Throat pain, No Throat swelling, No Other Cardiovascular: No Chest Pain, No Palpitations, No Orthopnea, No Paroxysmal Noc. Dyspnea, No Edema, No Lt Headedness, No Other Respiratory: No Cough, No Dry; Shortness of breath; No SOB with excertion, No Wheezing, No Hemoptysis, No Pleuritic Pain, No Sputum, No Other Gastrointestinal: No Nausea, No Vomiting, No Abdominal Pain, No Diarrhea, No Constipation, No Melena, No Hematochezia, No Other Genitourinary: No Dysuria, No Frequency, No Incontinence, No Hematuria, No Retention, No Other Musculoskeletal: No other, No neck pain, No shoulder pain, No arm pain, No back pain, No hand pain, No leg pain, No foot pain Skin: No Rash, No Lesions, No Jaundice, No Bruising, No Other Objective Vitals Vital Signs Date Time Temp Pulse Resp B/P (MAP) Pulse Ox O2 Delivery O2 Flow Rate FiO2 02/21/24 11:50 57 14 100 02/21/24 10:12 139/72 02/21/24 10:00 Nasal Cannula* 3 32 02/21/24 05:00 97.8 97.8 Intake/Output Intake and Output 02/21/24 07:00 Intake Total 1600 ml Output Total 1200 ml Balance 400 ml Intake Oral 1600 ml Output Urine Total 1200 ml # Voids 2 # Bowel Movements 2 General Appearance: Alert, Oriented X3, Cooperative Lungs: Other (poos abelino movemebt. Wheezing and rhonci present throughout all lung smith. ) Cardiovascular: Regular rate, Normal S1, Normal S2 Abdomen: Normal bowel sounds, Soft Musculoskeletal: Normal motor function Extremities: No tenderness/swelling Medications Current Medications Medications Dose Ordered Sig/Chiquita Route Start Time Stop Time Status Last Admin Dose Admin Azithromycin 250 ml @ 125 mls/hr DAILY IV 02/16/24 10:00 02/21/24 10:10 125 MLS/HR Diagnostic Test (Pha) 1 strip ACHS 02/15/24 17:00 02/21/24 11:22 1 STRIP Insulin Human Regular ACHS SC 02/15/24 17:00 02/20/24 11:30 2 UNITS Dextrose 50 ml UD PRN IV 02/15/24 14:45 Ondansetron HCl 4 mg Q4HP PRN IV 02/15/24 14:45 Nitroglycerin 0.4 mg Q5MINP PRN SL 02/15/24 14:45 Morphine Sulfate 2 mg Q30M PRN IV 02/15/24 14:45 Famotidine 20 mg DAILY IV 02/16/24 10:00 02/21/24 10:11 20 MG Albuterol 2.5 mg Q6HWA NEB 02/15/24 18:00 02/21/24 11:42 2.5 MG Ipratropium [place] 0.5 mg Q6HWA NEB 02/15/24 18:00 02/21/24 11:42 0.5 MG Acetaminophen 650 mg Q6HP PRN PO 02/15/24 23:00 02/17/24 06:39 650 MG Acetaminophen/ Hydrocodone Bitart 1 tab Q6HPRN PRN PO 02/16/24 21:00 02/19/24 04:10 1 TAB Methylprednisolone Sodium Succinate 40 mg BID IV 02/18/24 22:00 02/21/24 10:11 40 MG Budesonide 0.5 mg BID NEB 02/18/24 22:00 02/21/24 07:05 0.5 MG Furosemide 20 mg BIDD IV 02/18/24 18:00 02/21/24 17:59 02/21/24 05:49 20 MG Cefepime HCl 50 ml @ 12.5 mls/hr Q12HR IV 02/18/24 22:00 UNV Dabigatran 150 mg BID PO 02/18/24 11:55 02/21/24 10:11 150 MG Fosinopril Sodium 40 mg DAILY PO 02/18/24 11:30 02/21/24 10:11 40 MG Furosemide 40 mg BIDD PO 02/18/24 18:00 UNV Metoprolol Succinate 25 mg DAILY PO 02/18/24 11:30 02/21/24 10:12 25 MG Mirtazapine 45 mg HS PO 02/18/24 22:00 02/20/24 20:53 45 MG Lorazepam 0.5 mg Q6HP PRN PO 02/18/24 11:30 02/19/24 19:13 0.5 MG Cefepime HCl 50 ml @ 12.5 mls/hr Q12HR IV 02/18/24 22:00 02/20/24 20:53 12.5 MLS/HR Laboratory Results Laboratory Tests 02/20/24 11:03 Microbiology Microbiology Date/Time Source Procedure Growth Status 02/15/24 10:45 Blood Blood Culture - Final NO GROWTH AFTER 5 DAYS OF INCUBATION. Complete Labs and/or images reviewed: Labs reviewed by me, Image(s) reviewed by me Assessment/Plan Assessment/Plan Covering for Dr. Mclean Septic shock with elevated white count of 30k hypoxia Acute hypoxic respiratory failure: Oxygen by nasal cannula Use of Home oxygen 3 L per minute Acute on chronic COPD exacerbation albuterol and Atrovent med neb Solu-Medrol 40 mg IV b.i.d. Acute community-acquired pneumonia placed on cefepime, pulmonary consult by Dr. Brito appreciated, patient on cefepime 2 g IV q.12h and azithromycin 500 mg IV daily Diabetes Hypertension Autoimmune vasculitis Hypercholesterolemia Acute CHF exacerbation Hard of hearing PTSD Dementia Chronic AFib Blaire test negative Flu test neg Nargis [phone] at bedside Time spent 55 minutes Patient is full code Discussed with the patient about going to shelter facility for two weeks of IV antibiotics for pneumonia patient adamantly refusing and the patient's wants him to be discharged home when stable at bedside Plan discussed with: Patient Date of Service: Feb 21, 2024 Billing Provider: MARY SÁNCHEZ MD Common Visit Codes: [id number] INP/OBS CARE(HIGH) MARY SÁNCHEZ MD Feb 21, 2024 12:32
[2024-02-21] MEDS ORDERED: PRED20TA2 PO (12:33)
[2024-02-21] MEDS ORDERED: AZIT500T66 PO (12:33)
--- NOTE | 2024-02-21 12:41 | DVHDS2 ---
Discharge Summary Date of Admission Feb 15, 2024 at 14:32 Date of Discharge: Feb 21, 2024 Admitting Diagnosis Shortness of breath Wounds: None Labs/Diagnostic Data: Laboratory Results Test 02/21/24 05:52 02/20/24 11:03 02/18/24 06:12 02/15/24 13:58 POC Glucose 137 mg/dl (70-106) White Blood Count 18.9 10^3/uL (4.4-10.8) Red Blood Count 4.28 10^6/uL (4.5-5.90) Hemoglobin 12.6 g/dL (13.5-17.5) Hematocrit 38.3 % (41.0-53.0) Mean Corpuscular Volume 89.7 fL (80.0-100.0) Mean Corpuscular Hemoglobin 29.4 pg (28.0-32.0) Mean Corpuscular Hemoglobin Concent 32.7 g/dL (32.0-36.0) Red Cell Distribution Width 14.6 % (11.8-14.3) Platelet Count 238 10^3/uL (140-450) Mean Platelet Volume 8.0 fL (6.9-10.8) Neutrophils (%) (Auto) 87.9 % (37.0-80.0) Lymphocytes (%) (Auto) 4.8 % (10.0-50.0) Monocytes (%) (Auto) 7.1 % (0.0-12.0) Eosinophils (%) (Auto) 0.1 % (0.0-7.0) Basophils (%) (Auto) 0.1 % (0.0-2.0) Neutrophils # (Auto) 16.6 10 ^3/uL (1.6-8.6) Lymphocytes # (Auto) 0.9 10 ^3/uL (0.4-5.4) Monocytes # (Auto) 1.3 10 ^3/uL (0-1.3) Eosinophils # (Auto) 0 10 ^3/uL (0-0.8) Basophils # (Auto) 0 10 ^3/uL (0-0.2) Nucleated Red Blood Cells 0.1 % Sodium Level 143 mmol/L (136-145) Potassium Level 3.8 mmol/L (3.5-5.1) Chloride Level 106 mmol/L (98-107) Carbon Dioxide Level 32 mmol/L (20-31) Anion Gap 5 (5-15) Blood Urea Nitrogen 43 mg/dL (9-23) Creatinine 1.34 mg/dL (0.700-1.30) Glomerular Filtration Rate Calc 55 mL/min (>90) BUN/Creatinine Ratio 32.1 (10.0-20.0) Serum Glucose 125 mg/dL (74-106) Calcium Level 9.3 mg/dL (8.7-10.4) Total Bilirubin 0.4 mg/dL (0.2-1.0) Aspartate Amino Transferase (AST) 22 U/L (13-40) Alanine Aminotransferase (ALT) 26 U/L (7-40) Alkaline Phosphatase 118 U/L (46-116) Total Protein 6.3 g/dL (5.7-8.2) Albumin 3.7 g/dL (3.2-4.8) Differential Total Cells Counted 100.0 (100) Neutrophils % (Manual) 93 (37.0-80.0) Band Neutrophils % (Manual) 0 Lymphocytes % (Manual) 2 (10.0-50.0) Monocytes % (Manual) 5 (0-12) Eosinophils % (Manual) 0 (0-7) Basophils % (Manual) 0 (0.0-2.0) Metamyelocytes % (manual) 0 Myelocytes % (Manual) 0 Promyelocytes % (Manual) 0 Blast Cells % (Manual) 0 Reactive Lymphocytes 0 Platelet Estimate [place] Large Platelets Few Red Blood Cell Morphology Normal Lactic Acid Level 1.4 mmol/L (0.4-2.0) Test 02/15/24 09:39 02/15/24 08:00 02/15/24 07:37 Troponin I High Sensitivity 17 ng/L (</=54) Influenza Type A Antigen Negative (Negative) Influenza Type B Antigen Negative (Negative) SARS-CoV-2 Antigen (Rapid) Negative (NEGATIVE) Hemoglobin A1c 5.6 % A1C (<5.7) B-Type Natriuretic Peptide 97.79 pg/mL (0-100) Other Laboratory Tests 02/20/24 11:03 Brief Hx & Hospital Course: 71-year-old male with COPD diabetes hypertension hypercholesterolemia CHF PTSD dementia chronic AFib came in complaining of shortness of breath. He Uses albuterol med neb and on 3 L of oxygen at home. Found to have community- acquired pneumonia treated with the albuterol Atrovent Solu-Medrol azithromycin and Ceftin [address] Brito feels better on 3 L of oxygen which is his usual requirement and found eating lunch at the bedside and patient wants to be discharged home. Discharged home on azithromycin and prednisone tablets he will follow up with his primary Dr and Dr. Brito Consults/Reason for consult Pulmonology Dr. Brito Operations or Procedures None Condition at Discharge: Fair Final Diagnosis/Problems List Septic shock with elevated white count of 30k hypoxia Acute hypoxic respiratory failure: Oxygen by nasal cannula Use of Home oxygen 3 L per minute Acute on chronic COPD exacerbation albuterol and Atrovent med neb Solu-Medrol 40 mg IV b.i.d. Acute community-acquired pneumonia placed on cefepime, pulmonary consult by Dr. Brito appreciated, patient on cefepime 2 g IV q.12h and azithromycin 500 mg IV daily Diabetes Hypertension Autoimmune vasculitis Hypercholesterolemia Acute CHF exacerbation Hard of hearing PTSD Dementia Chronic AFib Blaire test negative Flu test neg Discharge Disposition: Home Discharge Instruct/Medications Diet: Cardiac 2g Na,low cholest Activity: Light activity Follow Up/Referral: Follow up with the primary Dr in one week Follow up with the pulmonology Dr. Brito in one week Resume all previous home medications Medications: Prednisone Azithromycin Transmitted to pharmacy 39 (Time Taken for discharge summary 39 minutes) Discharge Statement: "Patient was advised to return to the ER or call 911 if any headaches, dizziness, shortness of breath, chest pain, abdominal pain, bleeding, fevers, or worsening of medical condition. Patient was counseled about treatment plan, medications, possible side effects, patientverbalized understanding. All questions were answered to the best of my ability. This discharge took greater then 30 minutes in planning, reviewing documentation, counseling the patient, and discussing with other team members." ASSESSMENT ASSESSMENT Hospital Course Marginal improvement Assessment Septic shock with elevated white count of 30k hypoxia Acute hypoxic respiratory failure: Oxygen by nasal cannula Use of Home oxygen 3 L per minute Acute on chronic COPD exacerbation albuterol and Atrovent med neb Solu-Medrol 40 mg IV b.i.d. Acute community-acquired pneumonia placed on cefepime, pulmonary consult by Dr. Brito appreciated, patient on cefepime 2 g IV q.12h and azithromycin 500 mg IV daily Diabetes Hypertension Autoimmune vasculitis Hypercholesterolemia Acute CHF exacerbation Hard of hearing PTSD Dementia Chronic AFib Blaire test negative Flu test neg Date of Service: Feb 21, 2024 Billing Provider: MARY SÁNCHEZ MD Common Visit Codes: [id number] DISCH DAY >30min MARY SÁNCHEZ MD Feb 21, 2024 12:41
--- NOTE | 2024-02-21 22:55 | DVHPN2 ---
Progress Note - Dictate Date Seen: Feb 21, 2024 Medical Necessity Reason Pt with a Central, PICC or Fol: No Subjective Patient seen and examined at bedside. Remains on supplemental oxygen Overnight events reviewed. vital signs Vital Sign Date Time Temp Pulse Resp B/P (MAP) Pulse Ox O2 Delivery O2 Flow Rate FiO2 02/21/24 12:30 56 150/74 97 3.0 32 02/21/24 11:50 14 02/21/24 10:00 Nasal Cannula* 02/21/24 05:00 97.8 97.8 Total Intake and Output 02/20/24 02/20/24 02/21/24 15:00 23:00 07:00 Intake Total 1000 ml 600 ml Output Total 700 ml 500 ml Balance 300 ml 100 ml medications Current Medications Medications Dose Ordered Sig/Chiquita Route Start Time Stop Time Status Last Admin Dose Admin Cefepime HCl 50 ml @ 12.5 mls/hr Q12HR IV 02/18/24 22:00 UNV Furosemide 40 mg BIDD PO 02/18/24 18:00 UNV objective Gen.: Patient lying in bed in no apparent distress. On supplemental oxygen. Head: Normocephalic, atraumatic. Eyes: EOMI/PERRLA. Ears: Normal hearing. Normal anatomy. Neck/trachea: Trachea midline, supple. Nose: Normal external anatomy. Mouth: Moist mucous membranes. Chest: Decreased air entry bilaterally. No wheezing or rhonchi. Cardiovascular: Positive S1, positive S2. Regular rate and rhythm. Abdomen: Positive bowel sounds in all 4 quadrants. Soft, non-tender, non- distended. : Deferred. Rectal: Deferred. Skin: Warm, dry. Intact. Extremities: 2+ radial pulses bilaterally. No lower extremity edema. Neuro: Awake, alert, oriented x3. No gross motor or sensory deficits. Cranial nerves II through XII intact. Gait not assessed. laboratory and microbiology Laboratory Tests 02/20/24 11:03 Test 02/20/24 11:03 Range/Units Serum Glucose 125 H 74-106 mg/dL Assessment/Plan Impression: Acute hypoxic respiratory failure Dependence on supplemental oxygen AE COPD Pneumonia, likely gram negative Hx of nicotine dependence Congestive heart failure Obesity Events: Remains on supplemental oxygen, 3 LPM NC Taper O2 as tolerated Continue bronchodilators Complete steroid and antibiotic course Diurese as tolerated w/ Lasix Monitor renal function Monitor ins and outs PT evaluation Plan for SNF placement. Patient is stable for discharge from the pulmonary standpoint. Disposition per hospitalist. Labs and imaging reviewed. Rest of plan as noted below. Plan: Supplemental oxygen Titrate to keep O2 sats above 92%. BiPAP PRN CXR on 02/18/24 demonstrates pulmonary vascular congestion, RLL opacities. No pleural effusion or pneumothorax. Continue bronchodilators Complete antibiotics - cefepime, azithromycin Complete steroid course Pulmicort BID Diurese as tolerated w/ Lasix Monitor renal function. Monitor electrolytes. Supplement as necessary. Monitor ins and outs. Diet and lifestyle modifications for weight reduction Obesity - complicates all care DVT prophylaxis. Prognosis: Guarded given patient's multiple co-morbidities. Rest of plan per hospitalist and other consultants. Thank you, Dr. Cárdenas, for allowing me to participate in this patient's care. Further recommendations will depend on the patient's clinical course. Please do not hesitate to contact me if you have any questions or concerns. This medical document was created using an electronic medical record system with [employer] dictation system. Although these documentations are being carefully reviewed, there may still be some phonetic and typographical changes. The errors are purely typographical, due to imperfection on the software program, and do not reflect any compromise in the patient's medical care. Dietary Evaluation Review Comments: follow CCHO-60 diet, monitor PO intake to meet 75% of his needs Expected Outcomes/Goals: controlled DM, gradual wt loss. Plan discussed with: Patient, Other (TI [place]) ERNESTINA OLIVAS MD Feb 21, 2024 22:55
== END 2024-02-21 16:49 | disposition home or self-care (01) | DRG 871 ==
LOC: ER 06:51 → EDBD 06:51 → TELE 14:32 → TELE-WESTW 21:48
PROVIDERS: ADMIT Family Medicine; ATTEND Family Medicine
PROC: 05HB33Z Insertion of Infusion Device into Right Basilic Vein, Percutaneous Approach (ICD-10-PCS; principal; 2024-02-19)
PROC: B54MZZA Ultrasonography of Right Upper Extremity Veins, Guidance (ICD-10-PCS; 2024-02-19)
DX: A41.9 Sepsis, unspecified organism (principal); J18.9 Pneumonia, unspecified organism; J96.01 Acute respiratory failure with hypoxia; R65.21 Severe sepsis with septic shock; J44.1 Chronic obstructive pulmonary disease with (acute) exacerbation; N17.9 Acute kidney failure, unspecified; I48.20 Chronic atrial fibrillation, unspecified; J44.0 Chronic obstructive pulmonary disease with (acute) lower respiratory infection; Z20.822 Contact with and (suspected) exposure to COVID-19; E66.9 Obesity, unspecified; E78.00 Pure hypercholesterolemia, unspecified; F03.90 Unspecified dementia, unspecified severity, without behavioral disturbance, psychotic disturbance, mood disturbance, and anxiety; I11.0 Hypertensive heart disease with heart failure; I50.9 Heart failure, unspecified; I77.6 Arteritis, unspecified; E11.9 Type 2 diabetes mellitus without complications; Z99.81 Dependence on supplemental oxygen; Z87.891 Personal history of nicotine dependence; Z68.30 Body mass index [BMI] 30.0-30.9, adult; Z79.4 Long term (current) use of insulin
CPT/HCPCS: 36415; 71045; 80048; 80053; 82565; 82962; 83036; 83605; 83880; 84484; 85007; 85025; 85027; 87040; 87426; 87804; 93005; 93306; 94640; 97110; 97116; 97163; 99291; A4565; G0378; J0692; J1815; J3490